=== PATIENT | male | born 1955 | race Caucasian/White ===

== ENCOUNTER 2021-08-12 18:14 | Emergency (ER) | payer OTHER, SELFPAY ==
[2021-08-12] VITALS (21 sets, daily range): BP systolic 130–165; BP diastolic 83–95; PULSE 59–108; RESP 12–23; TEMP 36.6; O2SAT 94–99
--- NOTE | ~2021-08-12 | XR_ITS ---
XR chest 1V portable DATE: 08/12/2021 18:36 INDICATION: Irregular heart rate, lightheadedness. Hypertension. TECHNIQUE: Portable AP chest on 08/12/2021 1833 hours COMPARISON: 04/09/2010 PA and lateral chest FINDINGS: Normal heart size. No hilar or mediastinal enlargement. No pulmonary infiltrate or consol idation, pulmonary vascular congestion or pleural effusion or pneumothorax. Osteopenia. IMPRESSION: No active cardiopulmonary disease Osteopenia Reviewed, dictated and finalized at location A.
--- NOTE | 2021-08-12 18:15 | ECG_ITS ---
Measurements Intervals [place] Rate: 132 P: MT: 0 QRS: 14 QRSD: 230 T: 202 QT: 319 QTc: 473 Interpretive Statements SINUS RHYTHM WITH LEFT AXIS DEVIATION CONVERTING INTO WIDE COMPLEX TACHYCARDIA CONSISTENT WITHVENTRICULAR TACHYCARDIA. ABNORMAL ECG Electronically Signed On 08-13-2021 12:32:36 CDT by Augustus Hoff M.D.
[2021-08-12] MEDS: AMIODARONE 150 MG/D5W 100 ML 150 MG/100 ML BAG 600 MG IV CONT (18:29)
[2021-08-12] MEDS: ASPIRIN 81 MG CHEWABLE TABLET 324 MG PO (18:36)
[2021-08-12] MEDS: AMIODARONE 360 MG/D5W 200 ML 360 MG/200 ML BAG 33.33 MG IV CONT (18:39)
[2021-08-12 18:42] LABS: Basophils Percent Auto 0.3 % (0.2-1.2); Eosinophils Absolute Auto 0.2 K/mm3 (0-0.3); Eosinophils Percent Auto 1.6 % (0-4.4); Hematocrit 44.9 % (42.0-52.0); Hemoglobin 15.3 g/dL (14.0-18.0); Immature Granulocyte Absolute 0.04 K/mm3 (0.00-0.031); Immature Granulocyte Percent A 0.3 % (0-0.5); Lymphocytes Absolute Auto 3.23 K/mm3 (0.9-3.2); Lymphocytes Percent Auto 23.8 % (18.3-44.2); Mean Corpuscular HGB Conc 34.1 g/dl (32-36); Mean Corpuscular Hemoglobin 30.4 pg (26-34); Mean Corpuscular Volume 89.3 fl (80-100); Mean Platelet Volume 11.1 fl (7.4-10.4); Monocytes Absolute Auto 1.2 K/mm3 (0.1-0.6); Monocytes Percent Auto 8.5 % (2.6-8.5); Neutrophils Absolute Auto 8.9 K/mm3 (1.3-6.7); Neutrophils Percent Auto 65.5 % (45.5-73.1); Platelet Count Result 236 k/mm3 (150-375); Red Blood Count 5.03 M/mm3 (4.6-6.20); Red Cell Distribution Width 13.1 % (11.5-14.5); White Blood Count 13.6 K/mm3 (4.5-10.0)
--- NOTE | 2021-08-12 18:46 | ED.ARRPALP ---
HPI - Arrhythmia/Palpitations General Chief Complaint: Arrhythmia/Palpitations Stated Complaint: IRREG HR Time Seen by Provider: 08/12/21 18:17 Source: patient Mode of arrival: ambulatory Limitations: no limitations History of Present Illness HPI narrative: Patient is a 66-year-old male, with Hx of HTN, who presents the ED with report of palpitations. Pt reports he has had intermittent episodes of dizziness, lightheadedness, palpitations, and chest pain over the past few months. He states this episode will last a few seconds at a time before resolving. Tonight, these episodes became more frequent and prolonged approx 1 hour ago, prompting him to come to the ED. Patient with runs of sustained VTACH upon arrival. Patient has a long history of PVCs and palpitations, per his old records. He states he has worn several Holter monitors in the past and at one point a pacemaker was discussed. Patient had a cardiac evaluation and stress test 2 years ago at [facility], which he reports was normal. 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 Patient denies any recent fever, cough, back pain, syncope. He c/o mild nausea with the episodes. Patient is a full code. Related Data Home Medications Medication Instructions Recorded Confirmed atorvastatin 5 mg PO DAILY 08/12/21 metoprolol tartrate 25 mg PO DAILY 08/12/21 telmisartan 80 mg PO DAILY 08/12/21 Allergies Allergy/AdvReac Type Severity Reaction Status Date / Time No Known Allergies Allergy Mild Unverified 08/12/21 20:18 Review of Systems Review of Systems: CONSTITUTIONAL: Denies fever, chills. CARDIOVASCULAR: Reports palpitations and chest pain/tightness. Denies BLE edema. RESPIRATORY: Denies cough or dyspnea. GASTROINTESTINAL: Reports mild nausea. Denies abdominal pain, vomiting, or diarrhea. MUSCULOSKELETAL: Denies back pain, joint pain, or myalgia. NEUROLOGIC: Reports dizziness, lightheadedness. Denies syncope, headache, numbness, or weakness. All systems reviewed & are unremarkable except as noted in HPI and below PMFSH Past Medical History Medical History (Updated 08/12/21 @ 21:30 by Janeth Trujillo PA-C) Chou esophagus Hypertension PVC (premature ventricular contraction) Surgical History Surgical History (Updated 08/12/21 @ 21:16 by Janeth Trujillo PA-C) No pertinent past surgical history Social History Social History (Updated 08/12/21 @ 21:16 by Janeth Trujillo PA-C) Smoking status: Former smoker Exam Narrative: GENERAL: Well appearing, well-nourished, non-toxic, in no acute distress. HEAD: Normocephalic, atraumatic. NECK: Supple. No adenopathy, no masses. RESPIRATORY: Airway patent, respirations nonlabored. Clear to auscultation bilaterally, no rales, rhonchi, wheezing. CARDIOVASCULAR: Regular rate and rhythm with intermittent irregular rhythm. No murmurs, rubs, or gallops. Peripheral pulses 2+ and equal bilaterally. ABDOMINAL: Soft, nontender, nondistended, no hepatosplenomegaly. Normoactive BS. MUSCULOSKELETAL: Moves all extremities. Strength/ROM intact without gross deformities or TTP. No edema. No calf tenderness. SKIN: Warm, dry, normal color. No rashes. NEURO: A&O X3. Speech clear. Cranial nerves II-XII grossly intact. Steady gait. No ataxic movements. PSYCHIATRIC: Appropriate mood and affect. Normal interaction. Course Consultations Consultation #1: Discussed case with Dr. Hoff. Agrees with admission, but suggested calling [facility] or [facility] first to see if there are beds available where patient could receive electrophysiology consultation and evaluation. Date: 08/12/21 Time: 19:58 Consultation #2: Discussed with Dr. Alfaro, Hospitalist @ [facility] patient presentation and workup. Agrees with transfer and admission at this time. Date: 08/12/21 Vital Signs Vital signs: Vital Signs Temperature 98 F 08/12/21 18:17 Pulse Rate 108 H 08/12/21 18:17 Respiratory Rate 20 08/12/21 18:17 Blood Pressure 165/94 H 08/12
[2021-08-12 19:17] LABS: INR 1.1; Prothrombin Time 14.1 Seconds (11.1-14.7)
[2021-08-12 19:18] LABS: Alanine Aminotransferase 23 U/L (4-50); Albumin Level 4.4 g/dL (3.5-5.1); Alkaline Phosphatase 69 U/L (38-126); Anion Gap 12 mmol/L (8-16); Aspartate Amino Transferase 29 U/L (17-59); Bilirubin,Total 0.7 mg/dL (0.2-1.3); Blood Urea Nitrogen 20 mg/dL (9-20); Calcium 8.7 mg/dL (8.4-10.2); Carbon Dioxide 22 mmol/L (22-30); Chloride 105 mmol/L (98-107); Estimated CRCL calculation 62 ml/min; Estimated Glomerular Filt Rate > 60; Glucose 112 mg/dL (65-110); Lipase 122 U/L (23-300); Partial Thromboplastin Time 29.6 SECONDS (22.3-36.8); Potassium 3.3 mmol/L (3.4-5.0); Sodium 139 mmol/L (137-145)
[2021-08-12 19:29] LABS: Troponin I < 0.012 ng/mL (0.000-0.034)
[2021-08-12 21:38] LABS: SARS-CoV-2 RNA PCR Negative
[2021-08-12 22:12] LABS: Troponin I < 0.012 ng/mL (0.000-0.034)
--- NOTE | 2021-08-12 23:45 | PC.NURSE ---
Updated [facility] ETA 0130.
[2021-08-13] VITALS (7 sets, daily range): BP systolic 128–137; BP diastolic 59–93; PULSE 59–74; RESP 17–19; O2SAT 95–97
[2021-08-13] MEDS: AMIODARONE 360 MG/D5W 200 ML 360 MG/200 ML BAG 16.67 MG IV CONT (00:45)
[2021-08-13 01:06] LABS: Troponin I 0.022 ng/mL (0.000-0.034)
--- NOTE | 2021-08-13 02:49 | PC.NURSE ---
Per [facility] - unit sec, new EMS arrival time aprox 1005, pt made aware. Denies wanting blanket, lights dimmed, or needing anything at this time. Pt on tele monitor w/ VSS.
== END 2021-08-13 04:48 | disposition short-term general hospital (02) ==
PROVIDERS: Emergency Provider Emergency Medicine; PCP Internal Medicine
DX: I47.2 Ventricular tachycardia (principal); Z20.822 Contact with and (suspected) exposure to COVID-19; K22.70 Barrett's esophagus without dysplasia; I10 Essential (primary) hypertension; Z87.891 Personal history of nicotine dependence; M85.88 Other specified disorders of bone density and structure, other site
CPT/HCPCS: 36415; 71045; 80053; 83690; 83735; 84484; 85025; 85610; 85730; 93005; 96365; 96366; 99285; A9270; C9803; J0282; U0003; U0005

== ENCOUNTER 2025-04-18 03:19 | Emergency (ER) | payer MEDICARE, SELFPAY ==
--- NOTE | ~2025-04-18 | XR_ITS ---
Examination: XR chest 1V portable Clinical History: palpitations, dyspnea Comparison: 08/12/2021 Technique: Portable AP Findings: Heart size upper limit of normal. Low lung volumes with crowding of bronchovascular markings. Mild bibasilar atelectasis. No acute bony abnormality. IMPRESSION: 1. No acute cardiopulmonary findings given portable technique. Consider PA and lateral films with deep inspiration. Reviewed, dictated and finalized at location R. OAT MATE
--- OUTSIDE RECORDS SUMMARY | 2025-04-18 03:22 | XMS_ITS | Clinical Summary ---
Author Organization [facility] Address [address] [place] [address] Care Team Providers Care Scrap Sawyer Name Role Phone Zahida Griffin NP Unavailable [phone] Edy Godinez MD Primary Care Provider [phone] Marie CHOI MD, Curtis Merle Unavailable [phone] Allergies No known active allergies Medications atorvastatin (LIPITOR) 10 mg tabletIndications: Mixed hyperlipidemia Take 0.5 tablets (5 mg total) by mouth nightly 45 tablet 2 04/15/20 24 Active calcium carbonate (TUMS ORAL) Take by mouth 4 (four) times a day as needed (reflux) Active metoprolol XL (TOPROL-XL) 50 mg extended release tabletIndications: Benign hypertension Take 1 tablet (50 mg total) by mouth daily 90 tablet 3 03/22/20 25 026 Active losartan (COZAAR) 25 mg tabletIndications: Benign hypertension Take 1 tablet (25 mg total) by mouth daily 30 tablet 11 03/22/20 25 026 Active metoprolol tartrate (LOPRESSOR) 50 mg immediate release tablet Take 1 tablet by mouth twice daily 180 tablet 02/06/20 25 025 Discontinued Active Problems Problem Noted Date Diagnosed Date PVC (premature ventricular contraction) 03/22/20 25 Left ventricular diastolic d ysfunction with preserved systolic function 04/15/2024 Assessment & Plan (04/15/2024 10:40 PM COOK'S ASSISTANT): - Muna scan (09/08/21): mildly reduced LVEF 47%; negative myocardial perfusion imaging; mild to moderate LV dysfunction - asymptomatic, continues on metropolol - follow-up with cardiology Class 1 obesity with serious comorbidity and body mass index (BMI) of 30.0 to 30.9 in adult 04/15/2024 Assessment & Plan (10/13/2024 9:03 AM CDT): BMI Follow-up includes: nutrition counseling, exercise counseling, and education provided. Assessment & Plan (04/15/2024 10:46 PM COOK'S ASSISTANT): - heart healthy, low-fat, high-fiber diet - aim for at least 30 min aerobic activity daily Conductive hearing loss of r ight ear with unrestricted hearing of left ear 08/05/2023 2008 Encounter for annual wellnes s visit (AWV) in Medicare patient 02/02/2022 Assessment & Plan (02/04/2023 8:44 AM CDT): A(n) yearly Medicare Annual Wellness Visit has been performed today. Meir Calles is up to date on screening tests. He is in need of None- no screening indicated at this time. He is not up to date on needed preventative vaccinations; He is in need of Tdap/Td, Influenza, and Covid-19 (booster). We discussed healthy lifestyle habits, educational material has been given. Medications reviewed, changes documented as per the medical record and discussed with patient along with risks vs benefits. Return in 6 months Assessment & Plan (02/02/2022 5:57 PM CDT): A(n) initial Medicare Annual Wellness Visit has been performed today. Meir Calles is not up to date on screening tests. He is in need of Colon cancer screening. He is not up to date on needed preventative vaccinations; He is in need of Influenza and Covid-19 (booster). Labs as ordered Continuing metoprolol and atorvastatin at current doses Nonischemic cardiomyopathy 09/25/2021 Assessment & Plan (03/30/2025 7:56 AM COOK'S ASSISTANT): Chronic, stable. Mild LV dysfunction by last assessment. No significant ongoing HF symptoms. --Continue metoprolol and losartan Assessment & Plan (03/27/2023 8:37 AM CDT): Mild, with generally preserved LV ejection fraction. No heart failure symptoms. --Continue metoprolol Assessment & Plan (09/25/2021 11:14 AM CDT): Very mild/borderline LV dysfunction with nonspecific pattern of LGE on MRI. No perfusion abnormality to suggest infarct/ischemia. --No current indication for ICD --Continue metoprolol Liver cyst 09/20/2021 Assessment & Plan (09/20/2021 8:58 AM CDT): Found incidental on colin and apearance of benign suggest sono to [facility] and confirm stable bversus gi eval . Has gi for esophagus and Consider using them Colon cancer screening 09/20/2021 Assessment & Plan (09/20/2021 9:06 AM CDT): Referral to gi for 5 yr colon repeat Ventricular tachycardia, non-sustained Assessment & Plan (03/30/2025 7:55 AM COOK'S ASSISTANT): Chronic, stable. Low clinical burden. Well suppressed on metoprolol, which is well tolerated. --Continue metoprolol XL 50 mg daily Assessment & Plan (04/01/2024 8:35 AM COOK'S ASSISTANT): Chronic, stable condition. Well suppressed on metoprolol. --Continue metoprolol 50 mg b.i.d. Assessment & Plan (03/27/2023 8:37 AM CDT): Stable, very well controlled on metoprolol. No recurrence of symptoms.' --Continue metoprolol 50 mg BID Assessment & Plan (03/26/2022 9:14 AM CDT): Stable/improved. No PVCs on ECG today. Low burden by last monitor. Continue current strategy. If PVCs/VT worsen, PVC ablation or AAD therapy could be considered. --Continue metoprolol 50 mg BID --F/u 1 year or sooner if needed. Assessment & Plan (09/25/2021 11:13 AM CDT): Episodes of nonsustained VT and frequent PVCs, associated with symptoms. Recent ambulatory monitor shows improvement in arrhythmia burden on metoprolol, with a low PVC burden (2%) and no sustained episodes of VT. VT occurs in the context of what appears to be a very mild nonischemic cardiomyopathy with borderline reduced LV systolic function and some nonspecific fibrosis by LGE/cMRI. No evidence of ischemia/infarct by MRI or SPECT imaging. Given his improvement in symptoms and reduction in arrhythmia burden, favor conservative therapy with metoprolol for now. If symptoms worsen or if any red flags develop, would consider EPS, VT ablation. No current indication for ICD, although that could change if pt develops sustained arrhythmia. --Continue metoprolol 50 mg PO BID. --Report worsening symptoms. 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 PE (physical exam), annual 12/17/2018 Assessment & Plan (09/20/2021 9:03 AM CDT): Well exam low fall risk deproiens screen neg and cog screen nl axel paige md E/P card next week has seeen kin in the future and due for colon in October. referal to gi for follow up colon . Had covid shots not take flu shots had shingles shot sereis and tetnus good for anouther yr Assessment & Plan (06/22/2020 9:02 AM COOK'S ASSISTANT): psa dropped to loewr 1.2 and v natalee nl . Check in a yr, not taking flu consider the cocvid. Up to date on tetnus. Referral for egd. Colon oup ot date. shinlges had series. Assessment & Plan (12/21/2019 8:31 AM CDT): Check on return Assessment & Plan (12/17/2018 9:20 AM CDT): Check on return yr'ly Grade III hemorrhoids 01/24/2018 Assessment & Plan (01/24/2018 8:28 AM CDT): Chronic issue and declines surg ref erral but consider. Nocturia 04/25/2017 Assessment & Plan (01/24/2018 8:22 AM CDT): Check psa yr'ly and on return Assessment & Plan (04/25/2017 11:00 AM COOK'S ASSISTANT): Check psa yr'ly IGT (impaired glucose tolerance) 01/25/2017 Assessment & Plan (09/20/2021 8:54 AM CDT): a1c down to 5.4 dn in past 5.7 so watch diet Assessment & Plan (05/25/2021 8:30 AM COOK'S ASSISTANT): Check on return a1c Assessment & Plan (12/20/2020 8:21 AM CDT): Check a1 On reutrn Assessment & Plan (06/22/2020 8:53 AM COOK'S ASSISTANT): a1c dropoped over a yr on yr to nl at 5.6 Assessment & Plan (12/21/2019 8:31 AM CDT): a1c at 5.6 and droped trace recheck and watach diet Assessment & Plan (12/17/2018 9:24 AM CDT): a1c at 5.7 and 5.6 nl. Assessment & Plan (01/24/2018 8:21 AM CDT): a1c at 5.5 and 5.6 and less nl. No change and watch diet Assessment & Plan (04/25/2017 10:54 AM COOK'S ASSISTANT): Check obn return Assessment & Plan (01/25/2017 8:20 AM CDT): a1c at 5.5 and 5.6 andless nl Hyperlipidemia 05/02/2015 Overview (08/31/2016): HYPERLIPIDEMIA NEC/NOS Assessment & Plan (04/15/2024 10:46 PM COOK'S ASSISTANT): - chronic, LDL 72- close to goal of < 70 - HDL 33, triglycerides mildly elevated- may consider adding omega-3 supplementation, has been increasing PE - continue atorvastatin 10 mg daily Assessment & Plan (08/05/2022 10:56 AM CDT): Continuing atorvastatin LDL 66 mg/dl, well controlled HDL low, discussed need for regular activity LFT's wnl Assessment & Plan (09/20/2021 8:54 AM CDT): ldl at 50 and only needs 5mg And work well and keep hereYour cholesterol in the form of ldl (bad) cholesterol,hdl(good) cholesterol and triglycerides are monitored. The triglycerides respond to reduction/controll of your simple carbs/sugars In such items as sugared soda/sweet tea along with fruit juices(containing natural sugar) even if no added sugar is added. LDL cholesterol is reduced with reducing daily intake of fats and fernando. saturated fats. The monosaturated fats like olive oil are not harmful except in the calories they contained. Whole milk cheese needs to be remembered along with whole milk products And limited. Assessment & Plan (05/25/2021 8:30 AM COOK'S ASSISTANT): ldl 69 and want here r betterYour cholesterol in the form of ldl (bad) cholesterol,hdl(good) cholesterol and triglycerides are monitored. The triglycerides respond to reduction/controll of your simple carbs/sugars In such items as sugared soda/sweet tea along with fruit juices(containing natural sugar) even if no added sugar is added. LDL cholesterol is reduced with reducing daily intake of fats and fernando. saturated fats. The monosaturated fats like olive oil are not harmful except in the calories they contained. Whole milk cheese needs to be remembered along with whole milk products And limited. Assessment & Plan (12/20/2020 8:20 AM CDT): ldl dropped to 50 and on 10 And takes 1/2 so keep hereYour cholesterol in the form of ldl (bad) cholesterol,hdl(good) cholesterol and triglycerides are monitored. The triglycerides respond to reduction/controll of your simple carbs/sugars In such items as sugared soda/sweet tea along with fruit juices(containing natural sugar) even if no added sugar is added. LDL cholesterol is reduced with reducing daily intake of fats and fernando. saturated fats. The monosaturated fats like olive oil are not harmful except in the calories they contained. Whole milk cheese needs to be remembered along with whole milk products And limited. Assessment & Plan (06/22/2020 8:55 AM COOK'S ASSISTANT): ldl at 99 and hdl 32. Given ascvd risk 11.8% will stt atorvsitn 10 and take 1/2 A day with suggest to start at crushing the 1/2 pill and divide out over a week and see effect. If gets tired of doing can go to a 1/2 a day but no higherYour cholesterol in the form of ldl (bad) cholesterol,hdl(good) cholesterol and triglycerides are monitored. The triglycerides respond to reduction/controll of your simple carbs/sugars In such items as sugared soda/sweet tea along with fruit juices(containing natural sugar) even if no added sugar is added. LDL cholesterol is reduced with reducing daily intake of fats and fernando. saturated fats. The monosaturated fats like olive oil are not harmful except in the calories they contained. Whole milk cheese needs to be remembered along with whole milk products And limited. Assessment & Plan (12/21/2019 8:30 AM CDT): Lipids missed and ordered for returnYour cholesterol in the form of ldl (bad) cholesterol,hdl(good) cholesterol and triglycerides are monitored. The triglycerides respond to reduction/controll of your simple carbs/sugars In such items as sugared soda/sweet tea along with fruit juices(containing natural sugar) even if no added sugar is added. LDL cholesterol is reduced with reducing daily intake of fats and fernando. saturated fats. The monosaturated fats like olive oil are not harmful except in the calories they contained. Whole milk cheese needs to be remembered along with whole milk products And limited. Assessment & Plan (12/17/2018 9:24 AM CDT): ldl at 55 and great check full patern on returnYour cholesterol in the form of ldl (bad) cholesterol,hdl(good) cholesterol and triglycerides are monitored. The triglycerides respond to reduction/controll of your simple carbs/sugars In such items as sugared soda/sweet tea along with fruit juices(containing natural sugar) even if no added sugar is added. LDL cholesterol is reduced with reducing daily intake of fats and fernando. saturated fats. The monosaturated fats like olive oil are not harmful except in the calories they contained. Whole milk cheese needs to be remembered along with whole milk products And limited. Assessment & Plan (01/24/2018 8:21 AM CDT): hdl low at 30 ,ldl atg 60 great and no changes in medYour cholesterol in the form of ldl (bad) cholesterol,hdl(good) cholesterol and triglycerides are monitored. The triglycerides respond to reduction/controll of your simple carbs/sugars In such items as sugared soda/sweet tea along with fruit juices(containing natural sugar) even if no added sugar is added. LDL cholesterol is reduced with reducing daily intake of fats and fernando. saturated fats. The monosaturated fats like olive oil are not harmful except in the calories they contained. Whole milk cheese needs to be remembered along with whole milk products And limited. Assessment & Plan (04/25/2017 10:55 AM COOK'S ASSISTANT): ldl dropped To 57 with only 10 mg of atorvastin. Stay here as reverse many's arterial diseaeYour cholesterol in the form of ldl (bad) cholesterol,hdl(good) cholesterol and triglycerides are monitored. The triglycerides respond to reduction/controll of your simple carbs/sugars In such items as sugared soda/sweet tea along with fruit juices(containing natural sugar) even if no added sugar is added. LDL cholesterol is reduced with reducing daily intake of fats and fernando. saturated fats. The monosaturated fats like olive oil are not harmful except in the calories they contained. Whole milk cheese needs to be remembered along with whole milk products And limited. Assessment & Plan (01/25/2017 8:20 AM CDT): hdl going down to 30 and ldl at 101 and target less then 100, with systolic function issue there is a rec to work to keep ldl ideal and a Trace dose of a statin to consider.Your cholesterol in the form of ldl (bad) cholesterol,hdl(good) cholesterol and triglycerides are monitored. The triglycerides respond to reduction/controll of your simple carbs/sugars In such items as sugared soda/sweet tea along with fruit juices(containing natural sugar) even if no added sugar is added. LDL cholesterol is reduced with reducing daily intake of fats and fernando. saturated fats. The monosaturated fats like olive oil are not harmful except in the calories they contained. Whole milk cheese needs to be remembered along with whole milk products And limited. Chou's esophagus 10/10/2013 Overview (08/29/2016): Chou esophagus Assessment & Plan (04/15/2024 10:44 PM COOK'S ASSISTANT): - based on EGD esophageal bx (03/22/22) - no acute concerns, denies dysphagia - not currently on PPI, recommend routine follow-up with GI Assessment & Plan (06/22/2020 8:57 AM COOK'S ASSISTANT): Should see gi to be re eval'd ? Per there directios. As last one age 62. Last 11/10 and rec's of 3 yr repeat. Will refer Assessment & Plan (12/17/2018 9:23 AM CDT): Needs egd next October. Discussed meds and declines Palpitations 10/10/2013 Overview (08/29/2016): Palpitation Assessment & Plan (06/22/2020 8:53 AM COOK'S ASSISTANT): Gone with meds and lower caffeine Panic 10/10/2013 Overview (08/29/2016): Panic Intention tremor 10/10/2013 Overview (08/29/2016): Intention tremor Benign hypertension 10/10/2013 Overview (08/31/2016): BENIGN HYPERTENSION Assessment & Plan (04/15/2024 10:24 PM COOK'S ASSISTANT): - chronic, at goal of < 140/90 - continue metoprolol 50 mg BID - eGFR 68 Assessment & Plan (08/05/2022 10:55 AM CDT): Labs look well BP is controlled Continuing metoprolol Discussed AAA screen Assessment & Plan (09/20/2021 8:56 AM CDT): Hypertension, Medical treament revolves around weight control, salt management, and meds when necessary. long as weight loss is necessary and you are able to drop weight we can cont to monitor the blood pressure and not add meds. Once the weight is not changing then it becomes nesessary to add meds to be able to reach the goal bp.bp good on meds and leave alone. contorllledon meds Assessment & Plan (05/25/2021 8:31 AM COOK'S ASSISTANT): bp better and keep meds hereHypertension, Medical treament revolves around weight control, salt management, and meds when necessary. long as weight loss is necessary and you are able to drop weight we can cont to monitor the blood pressure and not add meds. Once the weight is not changing then it becomes nesessary to add meds to be able to reach the goal bp. Assessment & Plan (02/21/2021 8:03 AM CDT): Recommend DASH diet, heart healthy lifestyle, exercise. Discussed the risks of hypertension. Assessment & Plan (12/20/2020 8:16 AM CDT): The bp on high dise and will go to 80 mg on micardis and recheck and add hctz 12.5 in future if not ok. Hypertension, Medical treament revolves around weight control, salt management, and meds when necessary. long as weight loss is necessary and you are able to drop weight we can cont to monitor the blood pressure and not add meds. Once the weight is not changing then it becomes nesessary to add meds to be able to reach the goal bp. Assessment & Plan (06/22/2020 8:55 AM COOK'S ASSISTANT): bp contorlleda nd stay on meds as onHypertension, Medical treament revolves around weight control, salt management, and meds when necessary. long as weight loss is necessary and you are able to drop weight we can cont to monitor the blood pressure and not add meds. Once the weight is not changing then it becomes nesessary to add meds to be able to reach the goal bp. Assessment & Plan (12/21/2019 8:30 AM CDT): Reasonable controlled and cont meds as on Hypertension, Medical treament revolves around weight control, salt management, and meds when necessary. long as weight loss is necessary and you are able to drop weight we can cont to monitor the blood pressure and not add meds. Once the weight is not changing then it becomes nesessary to add meds to be able to reach the goal bp. Assessment & Plan (06/19/2019 8:02 AM COOK'S ASSISTANT): Recommend DASH diet, heart-healthy lifestyle, exercise. Discussed the risks of hypertension. Assessment & Plan (12/17/2018 9:23 AM CDT): bp acceeptable and no changes Assessment & Plan (09/15/2018 12:53 PM CDT): Recommend DASH diet, heart-healthy lifestyle, exercise. Discussed the risks of hypertension. Assessment & Plan (01/24/2018 8:20 AM CDT): The bp high and restart benicar and start at 1/4 pill a day and after 2 wks go to 1/2 if need Targeting less then 130 all time. Consider supper time if f eel lightheaed. Hypertension, Medical treament revolves around weight control, salt management, and meds when necessary. long as weight loss is necessary and you are able to drop weight we can cont to monitor the blood pressure and not add meds. Once the weight is not changing then it becomes nesessary to add meds to be able to reach the goal bp. Assessment & Plan (08/21/2017 9:59 PM CDT): Recommend DASH diet, heart-healthy lifestyle, exercise. Discussed the risks of hypertension. Assessment & Plan (04/25/2017 10:55 AM COOK'S ASSISTANT): bp good and no chagesHypertension, Medical treament revolves around weight control, salt management, and meds when necessary. long as weight loss is necessary and you are able to drop weight we can cont to monitor the blood pressure and not add meds. Once the weight is not changing then it becomes nesessary to add meds to be able to reach the goal bp.. Assessment & Plan (01/25/2017 8:18 AM CDT): bp high nl and monitor on occasionHypertension, Medical treament revolves around weight control, salt management, and meds when necessary. long as weight loss is necessary and you are able to drop weight we can cont to monitor the blood pressure and not add meds. Once the weight is not changing then it becomes nesessary to add meds to be able to reach the goal bp. Stricture of esophagus 10/10/2013 Overview (08/31/2016): Esophageal stricture Assessment & Plan (09/20/2021 8:53 AM CDT): Doing well Assessment & Plan (06/22/2020 8:52 AM COOK'S ASSISTANT): No complaints and not seeing gi for Systolic dysfunction 10/10/2013 Overview (08/31/2016): Systolic dysfunction Assessment & Plan (09/20/2021 8:53 AM CDT): Mild eje low or borderline . Seeing card as arb an issue Assessment & Plan (12/20/2020 8:20 AM CDT): eje fr 45 and wt off and bp tightening in order and recheck in a yr Assessment & Plan (06/22/2020 8:51 AM COOK'S ASSISTANT): Last 55 % eje fr and will ask to repeat the Wk before return Assessment & Plan (01/25/2017 8:19 AM CDT): Last echo at 57 and improved. Suggest to start low dose coreg and work up over time and recheck in a yr Obstructive sleep apnea syndrome 04/23/2011 Overview (08/31/2016): LIBERTAD (obstructive sleep apnea) Assessment & Plan (09/20/2021 8:53 AM CDT): Not treated and cannot tolerate Assessment & Plan (06/22/2020 8:53 AM COOK'S ASSISTANT): Does not treat Assessment & Plan (12/21/2019 8:31 AM CDT): Does not use Assessment & Plan (12/17/2018 9:26 AM CDT): doesnot use cpap and sugtest seeing sleep md at some point Resolved Problems Problem Noted Date Diagnosed Date Resolved Date Right wrist pain 01/24/2018 06/22/2020 Assessment & Plan (01/24/2018 8:27 AM CDT): Trial glusamine and if not helpful after a m onth then ortho referral Acute allergic otitis media of both ears 04/25/2017 01/24/2018 Assessment & Plan (04/25/2017 10:59 AM COOK'S ASSISTANT): Start Zyrtec 10 mg daily. Add singulair to try to work lazaro and see if can't reverse. . Once thru a series of freezes can sonsider backing off and restart the 1st week of dec. Restart flonase as well for now uontil better and then can try to stop the flonase, can use with atorovent nasal. Abnormal glucose tolerance test (GTT) 10/10/2013 01/25/2017 Overview (08/31/2016): IMPAIRED ORAL GLUCSE HERIBERTO Sleep apnea 10/10/2013 01/25/2017 Overview (08/31/2016): Sleep apnea Hypersomnia with sleep apnea 07/23/2011 01/25/2017 Overview (08/31/2016): Hypersomnia with sleep apnea Class 1 obesity with body ma ss index (BMI) of 32.0 to 32.9 in adult 04/23/2011 02/04/2023 Overview (08/29/2016): Obesity Assessment & Plan (08/05/2022 10:56 AM CDT): BMI Follow-up includes: nutrition counseling, exercise counseling and education provided. Assessment & Plan (09/20/2021 8:55 AM CDT): Work to keep stable to lose Assessment & Plan (05/25/2021 8:31 AM COOK'S ASSISTANT): Wt stable and Keep hre or better Assessment & Plan (12/20/2020 8:22 AM CDT): Work to drop wt Assessment & Plan (06/22/2020 8:59 AM COOK'S ASSISTANT): Work to dorp Insomnia 04/23/2011 01/25/2017 Overview (08/29/2016): Insomnia Encounters Date Type Department Care Team Description 04/13/2025 Results Follow-Up [facility] at [address] [phone] Edy Godinez MD CBC with auto differential, Comprehensive metabolic panel, Lipid panel, Additional followed-up results: 6 03/30/2025 8:00 AM COOK'S ASSISTANT [facility] [address] [id number] Madhu Salazar III, MD Ventricular tachycardia, non-sustained (HCC) (Primary Dx); Nonischemic cardiomyopathy (HCC); Cardiac arrhythmia, unspecified cardiac arrhythmia type 03/22/2025 10:45 AM CDT Office Visit [facility] at [address] [phone] Edy Godinez MD Benign hypertension (Primary Dx) 03/19/2025 Telephone [facility] at [address] [phone] Edy Godinez MD Symptom Based Call from Last 3 Months Immunizations Immunization Administration Dates Next Due DTaP 02/04/2024 Influenza, Unspecified 03/22/2025(Deferr ed: Patient Refused),04/15/2024(Deferred: Patient Refused),12/27/2023(Deferred: Patient Refused),08/05/2023(Deferred: Patient Refused),05/27/2023(Deferred: Patient Refused),05/28/2022(Deferred: Patient Refused),05/28/2022(Deferred: Patient Refused),03/02/2022(Deferred: Patient Refused),02/25/2022(Deferred: Patient Refused),01/31/2022(Deferred: Patient Refused),05/25/2021(Deferred: Patient Refused),03/02/2021(Deferred: Patient Refused),02/21/2021(Deferred: Patient Refused),06/22/2020(Deferred: Patient Refused),02/25/2020(Deferred: Patient Refused),02/25/2020(Deferred: Patient Refused),12/21/2019(Deferred: Patient Refused),02/24/2019(Deferred: Patient Refused),06/18/2018(Deferred: Patient Refused) Pfizer SARS-CoV-2 Monovalent Vaccination (12+ Yrs) PURPLE 10/27/2020,10/01/2020 Pneumococcal Conjugate PCV 13 08/01/2022 Pneumococcal Conjugate Pcv20 08/05/2023 Tdap 02/04/2024,07/28/2012,07/28/2012 ZOSTER Recombinant 12/21/2019,08/25/2019 Surgical History Surgery Date Site/Laterality Comments OTHER SURGICAL HISTORY 05/27/2009 - 05/26/2010 chest pain er COLONOSCOPY 03/22/2022 5 years ago Medical History Medical History Date Comments Atrial tachycardia Atrial Tachyc ardia Hx Other Medical Panic Gastric ulcer stomach ulcer Hypertension Hypertension History of colonoscopy 11/13/2016 at [facility] [place] esophagus GERD (gastroesophageal reflux disease) Anxiety 1978 Conductive hearing loss of r ight ear with unrestricted hearing of left ear 08/05/2023 Family History Medical History Relation Name Comments COPD Father Boris Calles Heart failure Father Boris Calles Hypertension Father Boris Calles Hypertension ; /Hypertension; No Known Problems Maternal Grandfather Cancer Maternal Grandmother Cassandra Little ca n't recall primary Dementia Mother Melba Calles Dementia; Diabetes Mother Melba Calles Diabetes me llitus; Hypertension Mother Melba Calles Hypertensio n; /Hypertension; Memory loss Mother Melba Calles Other Mother Melba Coronamouna Tremors; No Known Problems Paternal Grandfather Leukemia Paternal Grandmother Leukemia Sister Relation Name Status Comments Father Boris Calles Maternal Grandfather Maternal Grandmother Cassandra Little Mother Melba Calles Paternal Grandfather Paternal Grandmother Sister Alive Social History Tobacco Use Types Packs/Day Years Used Date Smoking Tobacco: Former Cigarettes 0.8 4 1 975 - 1978 Smokeless Tobacco: Never Comments:Haven't smoked in o sixto 42 years. Alcohol Use Standard Drinks/Week Comments Yes 0 (1 standard drink = 0.6 oz pur e alcohol) rarely AUDIT-C Answer Date Recorded Q1: How often do you have a drink containing alc ohol? 2-3 times a week 10/13/2024 Q2: How many drinks containi ng alcohol do you have on a typical day when you are drinking? 1 or 2 10/13/2024 Q3: How often do you have si x or more drinks on one occasion? 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 Not on file Not on file Not on fi le Last Filed Vital Signs Vital Sign Reading Time Taken Comments Blood Pressure 152/78 03/30/2025 8:08 AM COOK'S ASSISTANT Pulse 63 03/30/2025 8:08 AM COOK'S ASSISTANT Temperature 36.1 C (96.9 F) 03/22/2025 10:58 AM CDT Respiratory Rate 18 03/22/2025 10:58 AM CDT Oxygen Saturation 98% 03/30/2025 8:08 AM COOK'S ASSISTANT Inhaled Oxygen Concentration - - Weight 94.3 kg (208 lb) 03/30/2025 8:08 AM COOK'S ASSISTANT Height 177.8 cm (5' 10) 03/30/2025 8:08 AM COOK'S ASSISTANT Body Mass Index 29.84 03/30/2025 8:08 AM COOK'S ASSISTANT Plan of Treatment Health Maintenance Due Date Last Done Comments Prostate Cancer Screening-PSA 01/19/2025 01/20/2024, 07/30/2023, 01/22/2023, Additional history exists Depression Screening 10/13/2025 10/13/2024, 04/15/2024, 08/05/2023, Additional history exists Fall Risk Assessment 10/13/2025 10/13/2024, 04/15/2024, 02/04/2023, Additional history exists Well Visit 65+ 10/13/2025 10/13/2024, 01/25, 01/31/2022, Additional history exists Influenza Vaccine (#1) 2025 Postp oned from 01/25/2025 (Patient declined, but will receive in the future) Covid-19 Vaccine ( season) 2026 05/31/2021, 10/27/2020, 10/01/2020 Postponed from 01/25/2025 (Patient declined, but will receive in the future) Colon Cancer Screening-Colonoscopy 03/22/2032 03/22/2022, 11/13/2016, 01/09/2012, Additional history exists DTaP/Tdap/Td Vaccine (5 - Td or Tdap) 02/03/2034 02/04/2024, 02/04/2024, 07/28/2012, Additional history exists Hepatitis C Screening Completed 08/13/2016 Zoster Vaccine Completed 12/21/2019, 08/25/2019 Colon Cancer Screening-CT Colonography Discontinued 03/22/2022, 11/13/2016, 01/09/2012, Additional history exists Colon Cancer Screening-DNA Stool Discontinued 03/22/2022, 11/13/2016, 01/09/2012, Additional history exists Colon Cancer Screening-FIT Discontinued 03/22, 11/13/2016, 01/09/2012, Additional history exists Colon Cancer Screening-Sigmoidoscopy Discontinued 03/22/2022, 11/13/2016, 01/09/2012, Additional history exists Abdominal Aortic Aneurysm (AAA) Screen Completed 01/10/2023 Pneumococcal vaccine 65+ Completed 08/05/2023, 12/2022 Hepatitis B Screening Completed 04/12/2025 Procedures Procedure Name Priority Date/Time Associated Diagnosis Comments HEMOGLOBIN A1C Routine 04/12/2025 7:52 AM COOK'S ASSISTANT IGT (impaired glucose tolerance) VITAMIN D 25 HYDROXY Routine 04/12/2025 7:52 AM COOK'S ASSISTANT Class 1 obesity due to excess calories with serious comorbidity and body mass index (BMI) of 30.0 to 30.9 in adult THYROID FUNCTION CASCADE Routine 04/12/2025 7:52 AM COOK'S ASSISTANT Benign hypertension LIPID PANEL Routine 04/12/2025 7:52 AM COOK'S ASSISTANT Mixed hyperlipidemia COMPREHENSIVE METABOLIC PANEL Routine 04/12/2025 7:52 AM COOK'S ASSISTANT Benign hypertension CBC WITH AUTO DIFFERENTIAL Routine 04/12/2025 7:52 AM COOK'S ASSISTANT Benign hypertension HEPATITIS B CORE ANTIBODY, TOTAL Routine 04/12/2025 7:52 AM COOK'S ASSISTANT Need for hepatitis B screening test HEPATITIS B SURFACE ANTIGEN Routine 04/12/2025 7:52 AM COOK'S ASSISTANT Need for hepatitis B screening test HEPATITIS B SURFACE ANTIBODY (IMMUNE STATUS) Routine 04/12/2025 7:52 AM COOK'S ASSISTANT Need for hepatitis B screening test ECG 12-LEAD Routine 03/30/2025 8:08 AM COOK'S ASSISTANT Cardiac arrhythmia, unspecified cardiac arrhythmia type PSA SCREEN Routine 01/20/2024 7:34 AM CDT Prostate cancer screening ABDOMINAL AORTIC ANEURYSM SCREENING Schedule Routine, Read Routine (OP Routine) 01/10/2023 12:00 PM CDT Screening for abdominal aortic aneurysm COLONOSCOPY 03/22/2022 8:08 AM CDT HEPATITIS C SCREENING Routine 08/13/2016 from Last 3 Months or Most Recently Relevant to Health Maintenance Results * Thyroid Function Moca (04/12/2025 7:52 AM COOK'S ASSISTANT) TSH 2.13 0.40 - 4.50 mIU/L [email or web address] Blood 04/12/2025 7:52 AM COOK'S ASSISTANT 04/12/2025 7:52 AM COOK'S ASSISTANT Narrative [facility] - 04/13/2025 3:43 AM COOK'S ASSISTANT FASTING:YES FASTING: YES us Edy Godinez MD LAB BLOOD ORDERABLES Final Result [facility] [address] [place] [address] * CBC with auto differential (04/12/2025 7:52 AM COOK'S ASSISTANT) WBC 9.1 3.8 - 10.8 Thousand/u L [facility] RBC, POC 5.34 4.20 - 5.80 Million/uL [facility] Hgb 15.8 13.2 - 17.1 g/dL [facility] Hct 48.9 38.5 - 50.0 % [email or web address] MCV 91.6 80.0 - 100.0 fL [email or web address] MCH 29.6 27.0 - 33.0 pg [email or web address] MCHC 32.3 32.0 - 36.0 g/dL [facility] Comment: For adults, a slight decrease in the calculated MCHC value (in the range of 30 to 32 g/dL) is most likely not clinically significant; however, it should be interpreted with caution in correlation with other red cell parameters and the patient's clinical condition. Rdw 12.7 11.0 - 15.0 % [email or web address] Platelets 246 140 - 400 Thousand/u L [email or web address] MPV 10.9 7.5 - 12.5 fL [facility] Neutrophils, abs 5,551 1,500 - 7,800 cells/uL [facility] Lymphocytes, abs 2,439 850 - 3,900 cells/uL [facility] Monocyte abs 764 200 - 950 cells/uL [facility] Eosinophils, abs 291 15 - 500 cells/uL [facility] Basophils, abs 55 0 - 200 cells/uL [facility] Neutrophils 61 % [email or web address] Lymphocyte pct 26.8 % [email or web address] Monocytes 8.4 % [email or web address] Eosinophils 3.2 % [email or web address] Basophils 0.6 % [facility] Blood 04/12/2025 7:52 AM COOK'S ASSISTANT 04/12/2025 7:52 AM COOK'S ASSISTANT Narrative [facility] - 04/13/2025 3:43 AM COOK'S ASSISTANT FASTING:YES FASTING: YES Edy Godinez MD LAB BLOOD ORDERABLES Final Result [email or web address] [address] [place] [address] * Hepatitis B core antibody, total Blood (04/12/2025 7:52 AM COOK'S ASSISTANT) Pathologist [facility] [place] Hep B core IgG/IgM NON-REACTI VE NON-REACTI VE [email or web address] Comment: For additional information, please refer to http://Rangespan.Archiver's/faq/JYU790 (This link is being provided for informational/ educational purposes only.) Blood 04/12/2025 7:52 AM COOK'S ASSISTANT 04/12/2025 7:52 AM COOK'S ASSISTANT Narrative [facility] - 04/13/2025 3:43 AM COOK'S ASSISTANT FASTING:YES FASTING: YES Edy Godinez MD LAB MICROBIOLOGY - GENERAL ORDERABLES Final Result [facility] [address] [place] [address] * Vitamin D 25 hydroxy (04/12/2025 7:52 AM COOK'S ASSISTANT) Pathologist [facility] [place] Vitamin D 25-OH 40 30 - 100 ng/mL [facility] Comment: Vitamin D Status 25-OH Vitamin D: Deficiency: <20 ng/mL Insufficiency: 20 - 29 ng/mL Optimal: > or = 30 ng/mL For 25-OH Vitamin D testing on patients on D2-supplementation and patients for whom quantitation of D2 and D3 fractions is required, the QuestAssureD(TM) 25-OH VIT D, (D2,D3), LC/MS/MS is recommended: order code [id number] (patients >2yrs). See Note 1 Note 1 For additional information, please refer to http://Rangespan.[employer]/faq/WMB442 (This link is being provided for informational/ educational purposes only.) Blood 04/12/2025 7:52 AM COOK'S ASSISTANT 04/12/2025 7:52 AM COOK'S ASSISTANT Narrative [facility] - 04/13/2025 3:43 AM COOK'S ASSISTANT FASTING:YES FASTING: YES Result [facility] us Edy Godinez MD LAB BLOOD ORDERABLES Final Result Performing Organization Address [facility] Co de Phone Number [facility] [address] [place] [address] * Hepatitis B surface antibody (immune status) Blood (04/12/2025 7:52 AM COOK'S ASSISTANT) HBsAb (immune status) NON-REACTI VE NON-REACTI VE [facility] Blood 04/12/2025 7:52 AM COOK'S ASSISTANT 04/12/2025 7:52 AM COOK'S ASSISTANT Narrative [facility] - 04/13/2025 3:43 AM COOK'S ASSISTANT FASTING:YES FASTING: YES Result [facility] Edy Godinez MD LAB MICROBIOLOGY - GENERAL ORDERABLES Final Result Performing Organization Address [facility] Co de Phone Number [facility] [address] [place] [address] * Hepatitis B Surface Antigen Blood (04/12/2025 7:52 AM COOK'S ASSISTANT) HepBsAg NON-REACTI VE NON-REACTI VE [facility] Comment: For additional information, please refer to http://education.Archiver's/faq/RVZ216 (This link is being provided for informational/ educational purposes only.) Blood 04/12/2025 7:52 AM COOK'S ASSISTANT 04/12/2025 7:52 AM COOK'S ASSISTANT Narrative [facility] - 04/13/2025 3:43 AM COOK'S ASSISTANT FASTING:YES FASTING: YES Result [facility] us Edy Godinez MD LAB MICROBIOLOGY - GENERAL ORDERABLES Final Result Performing Organization Address [facility] Co de Phone Number [facility] [address] [place] [address] * (ABNORMAL) Hemoglobin A1c (04/12/2025 7:52 AM COOK'S ASSISTANT) Pathologist [facility] [place] Hgb A1C 5.7(H) <5.7 % of total Hgb [facility] Comment: For someone without known diabetes, a hemoglobin A1c value between 5.7% and 6.4% is consistent with prediabetes and should be confirmed with a follow-up test. For someone with known diabetes, a value <7% indicates that their diabetes is well controlled. A1c targets should be individualized based on duration of diabetes, age, comorbid conditions, and other considerations. This assay result is consistent with an increased risk of diabetes. Currently, no consensus exists regarding use of hemoglobin A1c for diagnosis of diabetes for children. Blood 04/12/2025 7:52 AM COOK'S ASSISTANT 04/12/2025 7:52 AM COOK'S ASSISTANT Narrative [facility] - 04/13/2025 3:43 AM COOK'S ASSISTANT FASTING:YES FASTING: YES Edy Godinez MD LAB BLOOD ORDERABLES Final Result [facility] [address] [place] [address] * (ABNORMAL) Lipid panel (04/12/2025 7:52 AM COOK'S ASSISTANT) [facility] Cholesterol 122 <200 mg/dL [facility] HDL 33(L) > OR = 40 mg/dL [facility] Triglycerides 167(H) <150 mg/dL [facility] LDL 64 mg/dL (calc) [facility] Comment: Reference range: <100 Desirable range <100 mg/dL for primary prevention; <70 mg/dL for patients with CHD or diabetic patients with > or = 2 CHD risk factors. LDL-C is now calculated using the Oscar-Daria calculation, which is a validated novel method providing better accuracy than the Friedewald equation in the estimation of LDL-C. Oscar MELENDEZ et al. DEBORAH. 2013;310(19): 0803-0685 (http://education.[employer]/faq/LIF958) Chol/HDL ratio 3.7 <5.0 (calc) [facility] Non-HDL, (LDL+VLDL) 89 <130 mg/dL (calc) [facility] Comment: For patients with diabetes plus 1 major ASCVD risk factor, treating to a non-HDL-C goal of <100 mg/dL (LDL-C of <70 mg/dL) is considered a therapeutic option. Blood 04/12/2025 7:52 AM COOK'S ASSISTANT 04/12/2025 7:52 AM COOK'S ASSISTANT Narrative [facility] - 04/13/2025 3:43 AM COOK'S ASSISTANT FASTING:YES FASTING: YES us Edy Godinez MD LAB BLOOD ORDERABLES Final Result [facility] [address] [place] [address] * (ABNORMAL) Comprehensive metabolic panel (04/12/2025 7:52 AM COOK'S ASSISTANT) Glucose 112(H) 65 - 99 mg/dL [facility] Comment: Fasting reference interval For someone without known diabetes, a glucose value between 100 and 125 mg/dL is consistent with prediabetes and should be confirmed with a follow-up test. BUN 16 7 - 25 mg/dL [facility] Creatinine 1.15 0.70 - 1.35 mg/dL [facility] eGFR 69 > OR = 60 mL/min/1.7 3m2 [facility] BUN/creat ratio SEE NOTE: 6 - 22 (calc) [facility] Comment: Not Reported: BUN and Creatinine are within reference range. Sodium 139 135 - 146 mmol/L [facility] Potassium, pl 4.6 3.5 - 5.3 mmol/L [facility] Chloride 103 98 - 110 mmol/L [facility] CO2 30 20 - 32 mmol/L [facility] Calcium 9.7 8.6 - 10.3 mg/dL [facility] Protein, sr 7.3 6.1 - 8.1 g/dL [facility]на [facility] Albumin 4.4 3.6 - 5.1 g/dL [facility] GLOBULIN 2.9 1.9 - 3.7 g/dL (calc) [facility]на [facility] Alb/glob ratio 1.5 1.0 - 2.5 (calc) [facility] Bilirubin, total 0.8 0.2 - 1.2 mg/dL [facility] Alk phos 56 35 - 144 U/L [facility] AST 16 10 - 35 U/L [facility] ALT (SGPT) 18 9 - 46 U/L [facility] Blood 04/12/2025 7:52 AM COOK'S ASSISTANT 04/12/2025 7:52 AM COOK'S ASSISTANT Narrative [facility] - 04/13/2025 3:43 AM COOK'S ASSISTANT FASTING:YES FASTING: YES Result [facility] Edy Godinez MD LAB BLOOD ORDERABLES Final Result Performing Organization Address [facility] Co de Phone Number [email or web address] [address] [place] [address] * ECG 12 lead (03/30/2025 8:08 AM COOK'S ASSISTANT) Madhu Salazar III, MD ECG ORDERABLES Fin al Result * PSA screen (01/20/2024 7:34 AM CDT) PSA 1.28 < OR = 4.00 ng/mL [facility] Comment: The total PSA value from this assay system is standardized against the WHO standard. The test result will be approximately 20% lower when compared to the equimolar-standardized total PSA ([place]). Comparison of serial PSA results should be interpreted with this fact in mind. This test was performed using the Siemens chemiluminescent method. Values obtained from different assay methods cannot be used interchangeably. PSA levels, regardless of value, should not be interpreted as absolute evidence of the presence or absence of disease. Blood 01/20/2024 7:34 AM CDT 01/20/2024 7:34 AM CDT Narrative [facility] - 01/21/2024 2:08 AM CDT FASTING:YES FASTING: YES Edy Godinez MD LAB BLOOD ORDERABLES Final Result Performing Organization Address [facility]/State/ZIP Co de Phone Number [facility] [address] [address] * US Abdominal Aortic Aneurysm Screening (01/10/2023 12:00 PM CDT) Anatomical Region Laterality Modality Abdomen Ultrasound 01/10/2023 1:19 PM CDT Narrative 01/10/2023 1:21 PM CDT EXAM DESCRIPTION: US ABDOMINAL AORTIC ANEURYSM SCREENING REASON FOR STUDY: screen for aaa TECHNIQUE: Grayscale images acquired of the aorta and stored on PACS. Selected color Doppler and spectral images recorded. COMPARISON: None FINDINGS: AORTIC CALIBER MAXIMAL PROXIMAL: Obscured by overlying bowel gas. MID: 2.1 x 2.1 cm. DISTAL: Partially obscured. 2.0 cm. ILIAC DIAMETER RIGHT: 1.2 cm. LEFT: 1.1 cm. OTHER: No other significant finding. IMPRESSION: 1. The aorta is partially obscured by overlying bowel gas. No abdominal aortic aneurysm is seen within the visualized portions. REFERENCE: Please see below follow up recommendations for abdominal aortic aneurysm surveillance per Society for Vascular Surgery Guidelines: < 2.5 cm No follow up necessary 2.52.9 cm Recommended ultrasound follow up every 10 years 3.0-3.9 cm Recommended ultrasound follow up every 3 years 4.0-4.9 cm Recommended ultrasound follow up every 12 months, vascular surgery consult 5.0-5.4 cm Recommended ultrasound follow up every 6 months, vascular surgery consult >= 5.5 cm Referral to vascular surgeon Based upon Society for Vascular Surgery Guidelines: J Vasc Surgery 2008 50: s2s49; updated May 2017 J Vasc Surgery 67:277 THIS IS AN ELECTRONICALLY VERIFIED FINAL REPORT 01/10/2023 1:21 PM - Electronically signed by Chino Arreola M.D. AG: DEMETRIUS Report ID: [id number] Reading Location: [id number] Procedure Note Chino Arreola MD - 01/10/2023 EXAM DESCRIPTION: US ABDOMINAL AORTIC ANEURYSM SCREENING REASON FOR STUDY: screen for aaa TECHNIQUE: Grayscale images acquired of the aorta and stored on PACS.Selected color Doppler and spectral images recorded. COMPARISON: None FINDINGS: AORTIC CALIBER MAXIMAL PROXIMAL: Obscured by overlying bowel gas. MID: 2.1 x 2.1 cm. DISTAL: Partially obscured. 2.0 cm. ILIAC DIAMETER RIGHT: 1.2 cm. LEFT: 1.1 cm. OTHER: No other significant finding. IMPRESSION: 1. The aorta is partially obscured by overlying bowel gas. No abdominal aortic aneurysm is seen within the visualized portions. REFERENCE: Please see below follow up recommendations for abdominal aortic aneurysm surveillance per Society for Vascular Surgery Guidelines: < 2.5 cm No follow up necessary 2.52.9 cm Recommended ultrasound follow up every 10 years 3.0-3.9 cm Recommended ultrasound follow up every 3 years 4.0-4.9 cm Recommended ultrasound follow up every 12 months, vascularsurgery consult 5.0-5.4 cm Recommended ultrasound follow up every 6 months, vascularsurgery consult >= 5.5 cm Referral to vascular surgeon Based upon Society for Vascular Surgery Guidelines: J Vasc Surgery 2009Oct 50: s2s49; updated May 2017 J Vasc Surgery 67:277 THIS IS AN ELECTRONICALLY VERIFIED FINAL REPORT 01/10/2023 1:21 PM - Electronically signed by Chino Arreola M.D. AG: AG Report ID: [id number] Reading Location: [id number] us Edy Godinez MD [facility] US PROCEDURES Final Res ult * COLONOSCOPY (03/22/2022 8:08 AM CDT) Anatomical Region Laterality Modality Other Narrative Procedure Note Roxane La MD - 03/22/2022 8:08 AM CDT [facility] Patient Name: Meir Calles Procedure Date: 03/22/2022 8:08 AM Date of : 1955 Admit Type: Outpatient Age: 67 Gender: Male Note Status: Finalized Attending MD: Roxane La M.D. Procedure Date: 03/22/2022 Procedure: Colonoscopy Indications: High risk colon cancer surveillance: Personalhistory of colonic polyps, Last colonoscopy: October 2016 Providers: Roxane La M.D., Nancy Gill CRNA (Anesthesia Staff), Carmita Fung RN Referring MD: Edy Godinez M.D. Medicines: Monitored Anesthesia Care Complications: No immediate complications. Estimated Blood Loss: Estimated blood loss was minimal. Procedure: Pre-Anesthesia Assessment: - Prior to the procedure, a History and Physicalwas performed, and patient medications and allergieswere reviewed. The patient is competent. The risks and benefits of the procedure and the sedation optionsand risks were discussed with the patient. Allquestions were answered and informed consent was obtained. Patient identification and proposed procedure were verified by the physician, the nurse and the machine shorthand reporter in the procedure room. Mental Status Examination: alert and oriented. AirwayExamination: normal oropharyngeal airway and neck mobility. Respiratory Examination: clear to auscultation. CV Examination: normal. Prophylactic Antibiotics: The patient does not require prophylactic antibiotics. Prior Anticoagulants: The patient has taken no anticoagulant or antiplatelet agents. ASA Grade Assessment: III - A patient with severe systemic disease. After reviewing the risks and benefits,the patient was deemed in satisfactory condition to undergo the procedure. The anesthesia plan was touse monitored anesthesia care (MAC). Immediately priorto administration of medications, the patient was re-assessed for adequacy to receive sedatives. The heart rate, respiratory rate, oxygen saturations, blood pressure, adequacy of pulmonary ventilation,and response to care were monitored throughout the procedure. The physical status of the patient was re-assessed after the procedure. - The risks and benefits of the procedure and the sedation options and risks were discussed with the patient. All questions were answered and informed consent was obtained. After I obtained informed consent, the scope was passed under direct vision. Throughout theprocedure, the patient's blood pressure, pulse, and oxygen saturations were monitored continuously. The scopewas passed under direct vision. The Colonoscope was introduced through the anus and advanced to the the cecum, identified by appendiceal orifice andileocecal valve. The colonoscopy was performed without difficulty. The patient tolerated the procedurewell. The quality of the bowel preparation was adequate.The bowel preparation used was Clenpiq via split dose instruction. Findings: A 1 mm polyp was found in the cecum. The polyp was sessile. The polyp was removed with a jumbo cold forceps. Resection and retrieval were complete. Estimated blood loss was minimal. A few small-mouthed diverticula were found in the entire colon. External hemorrhoids were found during perianal exam. The hemorrhoids were moderate. The exam was otherwise without abnormality on direct and retroflexion views. Impression: - One 1 mm polyp in the cecum, removed with a jumbo cold forceps. Resected and retrieved. - Diverticulosis in the entire examined colon. - External hemorrhoids. - The examination was otherwise normal on directand retroflexion views. Recommendation: - Await pathology results. - High fiber diet. - Repeat colonoscopy in 7-10 years for surveillance based on pathology results. Procedure Code(s): --- Professional --- 09972, Colonoscopy, flexible; with biopsy, singleor multiple Diagnosis Code(s): --- Professional --- Z86.010, Personal history of colonic polyps D12.0, Benign neoplasm of cecum K64.4, Residual hemorrhoidal skin tags K57.30, Diverticulosis of large intestine without perforation or abscess without bleeding CPT copyright 2020 [employer]. All rights reserved. The codes documented in this report are preliminary and upon language interpreter reviewmay be revised to meet current compliance requirements. Electronically signed by Roxane La M.D. Roxane La M.D. 03/22/2022 9:19:11 AM Number of Addenda: 0 Note Initiated On: 03/22/2022 8:08 AM Roxane La MD ENDOSCOPY PROCEDURES Fi nal Result * HEPATITIS C SCREENING (08/13/2016) HEP C Normal Comment:NEGATIVE Historical Provider HEALTH MAINTENANCE Final Result from Last 3 Months or Most Recently Relevant to Health Maintenance Insurance [facility] MEDICARE [facility] [place]IC[place] [address] [facility] MEDICARE Advance Directives For more information, please contact: [phone] Documents on File Type Date Recorded 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 ADVANCE DIRECTIVE 08/16/2021 1:14 PM Power of Cordwainer-Medical Power of Cordwainer 08/13/2021 1:09 PM * Full Code (Latest Code Status on File) Date Activated Date Inactivated Comments 08/13/2021 5:45 AM 08/14/2021 10:08 PM * Full Code Date Activated Date Inactivated Comments 06/30/2020 8:31 AM 06/30/2020 2:39 PM * Full Code Date Activated Date Inactivated Comments 06/30/2020 8:31 AM 06/30/2020 8:31 AM Care Teams Scrap Sawyer Relationship Specialty Start Date End Date Edy Godinez MD [address] [place] [address] PCP - General Family Medicine 01/31/22 Zahida Griffin NP Nurse Practitioner Nurse Practitioner 07/11/17 Madhu Salazar III, MD [address] [address] Consulting Physician Cardiology 02/04/23
--- OUTSIDE RECORDS SUMMARY | 2025-04-18 03:22 | XMS_ITS | Encounter Summary ---
Author Organization [facility] Address [address] [place] [address] Phone Care Team Providers Care Animal Cruelty Investigator Name Role Phone Vinnie Bobby MD Primary Care Provi hceco Zahida Griffin PROTEIN SCIENTIST Unavailable Edy Godinez MD Primary Care Provider Marie CHOI MD, Madhu Ramos Unavailable [phone] Encounter Details Date Type Department Care Team (Late st Contact Info) Description 08/09/2017 Orders Only [facility] ProviderFrancisca MD [address] [place] [id number] Social History Tobacco Use Types Packs/Day Years Used Date Smoking Tobacco: Former Smokeless Tobacco: Former Alcohol Use Standard Drinks/Week Comments No 0 (1 standard drink = 0.6 oz pur e alcohol) Sex and Gender Information Value Date Recorded Sex Assigned at Not on file 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 us Historical Provider LAB BLOOD ORDERABLES Cristina l Result documented in this encounter Visit Diagnoses Not on filedocumented in this encounter Care Teams Animal Cruelty Investigator Relationship Specialty Start Date End Date Vinnie Bobby MD PCP - General 08/24/16 01/30/22 Edy Godinez MD [address] [place] [address] PCP - General Family Medicine 01/31/22 Zahida Griffin NP Nurse Practitioner Nurse Practitioner 07/11/17 Madhu Salazar III, MD [address] [address] Consulting Physician Cardiology 02/04/23 documented as of this encounter
[2025-04-18 03:25] VITALS: BP 176/96; PULSE 80; RESP 17; TEMP 36.7; O2SAT 99
--- NOTE | 2025-04-18 03:25 | ECG_ITS ---
Test Date: 2025-04-18 03:27:01 Measurements Intervals [place] Rate: 77 P: 50 NH: 183 QRS: -33 QRSD: 107 T: 1 QT: 359 QTc: 406 Interpretive Statements SINUS RHYTHM LEFT AXIS DEVIATION [QRS AXIS < -30] POSSIBLE LEFT VENTRICULAR HYPERTROPHY [VOLTAGE CRITERIA PLUS LAE OR QRS WIDENING] No previous ECG available for comparison Electronically Signed On 04-18-2025 06:20:03 EQUAL OPPORTUNITY COUNSELOR by Isa Farley M.D.
[2025-04-18 04:05] VITALS: PULSE 77
[2025-04-18 04:07] LABS: Hematocrit 45.0 % (42.0-52.0); Hemoglobin 15.5 g/dL (14.0-18.0); Immature Granulocyte Percent A 0.3 % (0-0.5); Lymphocytes Absolute Auto 3.05 K/mm3 (0.9-3.2); Mean Corpuscular HGB Conc 34.4 g/dl (32-36); Mean Corpuscular Hemoglobin 29.6 pg (26-34); Mean Corpuscular Volume 85.9 fl (80-100); Nucleated Red Blood Cells Absolute Auto 0.000 K/mm3 (0.0-0.012); Nucleated Red Blood Cells Perc 0.0 % (0.0-0.2); Platelet Count Result 233 k/mm3 (150-375); Red Blood Count 5.24 M/mm3 (4.6-6.20); White Blood Count 10.3 K/mm3 (4.5-10.0)
[2025-04-18 04:09] LABS: Alanine Aminotransferase 29 U/L (6-50); Albumin Level 4.5 g/dL (3.5-5.1); Alkaline Phosphatase 70 U/L (38-126); Anion Gap 10 mmol/L (4-12); Aspartate Amino Transferase 30 U/L (17-59); Bilirubin,Total 0.8 mg/dL (0.2-1.3); Blood Urea Nitrogen 18 mg/dL (9-20); Calcium 9.4 mg/dL (8.4-10.2); Carbon Dioxide 22 mmol/L (22-30); Chloride 106 mmol/L (98-107); Estimated CRCL calculation 70 ml/min; Estimated Glomerular Filt Rate > 60; Glucose 114 mg/dL (65-110); Lipase 151 U/L (23-300); Potassium 3.9 mmol/L (3.4-5.0); Sodium 138 mmol/L (137-145); Total Protein 8.0 g/dL (6.3-8.2)
[2025-04-18] MEDS: METOPROLOL TARTRATE 50 MG TAB PO (04:20)
[2025-04-18 04:21] LABS: INR 1.1; Partial Thromboplastin Time 29.7 Seconds (22.3-36.8); Prothrombin Time 13.8 Seconds (11.1-14.7); Troponin I < 0.012 ng/mL (0.000-0.034)
--- NOTE | 2025-04-18 04:27 | ED_ITS ---
HPI - Arrhythmia/Palpitations General Chief Complaint: Arrhythmia/Palpitations Stated Complaint: irregular heart rhythm Time Seen by Provider: 04/18/25 03:54 History of Present Illness HPI narrative: 70-year-old male with a 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 He has had these ongoing intermittently since 2021 where he went to [facility] and had extensive cardiac workup including cardiac MRI, echocardiogram, stress test and patient was placed on by daily metoprolol and has been mostly symptom free for several years. He has been doing with some elevated blood pressure readings and his primary care provider changed his metoprolol dose from metoprolol tartrate 50 mg b.i.d. to metoprolol succinate 90 mg daily instead. This change occurred about 3 weeks ago and now he is having symptoms with having intermittent palpitations that are not sustained that he thinks could be similar to his previous ventricular dysrhythmias or PVCs. Denies any chest pain or difficulty breathing with these symptoms but does notice his heart flutter when they happen. Last episode was just prior to arrival he has been symptom-free since arrival to the ED. Denies any symptoms at this time. Besides his medication change his metoprolol no other medication changes recent health concerns. No traumatic injuries. No recent illnesses. Does not take any other anti dysrhythmic medications and does not take any blood thinners even aspirin. Related Data Home Medications ?Medication ?Instructions ?Recorded ?Confirmed ?Last Taken ?Type atorvastatin 10 mg tablet 5 mg PO DAILY 08/12/21 Unkn own History metoprolol tartrate 25 mg tablet 25 mg PO DAILY Unknown History telmisartan 80 mg tablet 80 mg PO DAILY 08/12/21 Unk nown History Allergies Allergy/AdvReac Type Severity Reaction Status Date / Time No Known Allergies Allergy Mild Verified 04/18/25 03:30 Review of Systems 2 Review of Systems: As reviewed above in HPI [facility] Past Medical History Medical History Chou esophagus PVC (premature ventricular contraction) Hypertension Surgical History Surgical History No pertinent past surgical history Social History Social History Smoking status: Former smoker Exam 2 Narrative: GENERAL: [Well-appearing, well-nourished, and in no acute distress.] HEAD: [Normocephalic, atraumatic.] EYES: [PERRLA and EOMI.] ENT: Nares clear, no rhinorrhea or epistaxis. Mucous membranes moist. NECK: Supple. CHEST: [Clear to auscultation. No respiratory distress.] HEART: [Regular rate and rhythm]. No murmur heard. [Normal peripheral pulses.] ABDOMEN: [Soft, nondistended], [nontender], [No rigidity or guarding] EXTREMITIES: Normal range of motion. [No edema.] SKIN: Warm, dry, no rash. NEURO: [No focal deficits]. Alert and oriented [x3.] PSYCH: [Normal mood and affect.] Course Vital Signs Vital signs: Vital Signs Temperature 36.7 C 04/18/25 03:25 Pulse Rate 80 04/18/25 03:25 Respiratory Rate 17 04/18/25 03:25 Blood Pressure 176/96 H 04/18/25 03:25 Pulse Oximetry 99 04/18/25 03:25 Oxygen Delivery Room Air 04/18/25 03:25 Temperature 36.7 C 04/18/25 03:25 Pulse Rate 68 04/18/25 06:48 Respiratory Rate 18 04/18/25 06:48 Blood Pressure 162/99 H 04/18/25 06:48 Pulse Oximetry 95 04/18/25 06:48 Oxygen Delivery Room Air 04/18/25 03:25 MDM - Arrhythmia/Palpitations MDM Narrative Medical decision making narrative: 70-year-old male with a 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 He has had these ongoing intermittently since 2021 where he went to [facility] and had extensive cardiac workup including cardiac MRI, echocardiogram, stress test and patient was placed on by daily metoprolol and has been mostly symptom free for several years. He has been doing with some elevated blood pressure readings and his primary care provider changed his metoprolol dose from metoprolol tartrate 50 mg b.i.d. to metoprolol succinate 90 mg daily instead. This change occurred about 3 weeks ago and now he is having symptoms with having intermittent palpitations that are not sustained that he thinks could be similar to his previous ventricular dysrhythmias or PVCs. Denies any chest pain or difficulty breathing with these symptoms but does notice his heart flutter when they happen. Last episode was just prior to arrival he has been symptom-free since arrival to the ED. Denies any symptoms at this time. Besides his medication change his metoprolol no other medication changes recent health concerns. No traumatic injuries. No recent illnesses. Does not take any other anti dysrhythmic medications and does not take any blood thinners even aspirin. Patient's EKG appears reassuring without any dysrhythmia or PVCs. He was placed on monitoring specialist. He is not unremarkable physical examination was strong symmetric pulses in clear breath sounds. No complaints at this time. Given a dose of his previously working metoprolol tartrate 50 mg and cardiac workup at this time including serial troponin and electrolyte panel ordered. X-ray EKG obtained. Patient will be observed for any recurrence of his ventricular PVCs or other dysrhythmias and already has a appointment tomorrow with his primary care provider to discuss further. He had a recent follow-up visit with his speech clinician who manages last month as well. His doctors is in [facility]. Patient's initial troponin is unremarkable and his 1st EKG is normal. No PVCs. Patient felt much better after giving him his 50 mg metoprolol tartrate dose. Laboratory studies are reassuring without any signs of kidney disease or electrolyte imbalances. Delta troponin is also negative and repeat EKG unremarkable. Patient has been observed on telemetry here in the ED for several hours without any ectopy or PVCs. After repeat evaluation and symptom control I had discussion with the patient and we will change his metoprolol dosing to b.i.d. metoprolol tartrate as he was stable on this dose for years without any recurrence of his symptoms and he will follow up with his doctor tomorrow. Patient comfortable the plan and safe for discharge with strict return precautions. Medical Records Attestation: I reviewed the patient's medical records. Lab Data Attestation: I reviewed the patient's lab results. 04/18/25 03:51 04/18/25 03:51 Labs: Lab Results 04/18/25 04/18/25 Range/Units 03:51 06:22 WBC 10.3 H (4.5-10.0) K/mm3 RBC 5.24 (4.6-6.20) M/mm3 Hgb 15.5 (14.0-18.0) g/dL Hct 45.0 (42.0-52.0) % MCV 85.9 (80-100) fl MCH 29.6 (26-34) pg MCHC 34.4 (32-36) g/dl RDW 12.8 (11.5-14.5) % Plt Count 233 (150-375) k/mm3 MPV 10.6 H (7.4-10.4) fl Immature Gran % (Auto) 0.3 (0-0.5) % Neut % (Auto) 59.4 (45.5-73.1) % Lymph % (Auto) 29.5 (18.3-44.2) % [place] % (Auto) 7.8 (2.6-8.5) % Eos % (Auto) 2.5 (0-4.4) % Baso % (Auto) 0.5 (0.2-1.2) % Lymph # (Auto) 3.05 (0.9-3.2) K/mm3 [place] # (Auto) 0.8 H (0.1-0.6) K/mm3 Eos # (Auto) 0.3 (0-0.3) K/mm3 Baso # (Auto) 0.1 (0.0-0.1) K/mm3 Abs Immat Gran (auto) 0.03 (0.00-0.031) K/mm3 Absolute Neuts (auto) 6.1 (1.3-6.7) K/mm3 Absolute Nucleated RBC 0.000 (0.0-0.012) K/mm3 Nucleated RBC % 0.0 (0.0-0.2) % PT 13.8 (11.1-14.7) Seconds INR 1.1 APTT 29.7 (22.3-36.8) Seconds Sodium 138 (137-145) mmol/L Potassium 3.9 (3.4-5.0) mmol/L Chloride 106 (98-107) mmol/L Carbon Dioxide 22 (22-30) mmol/L Anion Gap 10 (4-12) mmol/L BUN 18 (9-20) mg/dL Creatinine 1.06 (0.7-1.3) mg/dL Estim Creat Clear Calc 70 ml/min Estimated GFR > 60 (59 - ) Glucose 114 H (65-110) mg/dL Calcium 9.4 (8.4-10.2) mg/dL Magnesium 2.3 (1.6-2.3) mg/dL Total Bilirubin 0.8 (0.2-1.3) mg/dL AST 30 (17-59) U/L ALT 29 (6-50) U/L Alkaline Phosphatase 70 (38-126) U/L Troponin I < 0.012 < 0.012 (0.000-0.034) ng/mL Total Protein 8.0 (6.3-8.2) g/dL Albumin 4.5 (3.5-5.1) g/dL Lipase 151 (23-300) U/L TSH 4.350 (0.465-4.680) uIU/mL Imaging Data Attestation: I personally reviewed and interpreted this imaging study as follows: My impression: Impressions Chest X-Ray 04/18/25 06:53 IMPRESSION: 1. No acute cardiopulmonary findings given portable technique. Consider PA and lateral films with deep inspiration. Discharge Plan Discharge Clinical Impression: Palpitations, Hypertension, PVC (premature ventricular contraction) Patient Disposition: Home Condition: Stable Instructions: Antibiotic Form Additional Instructions: We will change your medications to go back to what was working in the past including 50 mg metoprolol tartrate b.i.d.. Do not take the metoprolol succinate anymore and talk to your doctor tomorrow about continuing this regimen and further titration care of your blood pressure medicines. Return with any emergent concerns or recurrent symptoms, losing consciousness, chest pain, shortness a breath or any other emergencies. Patient Language: Moroccan Prescriptions: New metoprolol tartrate 50 mg tablet 50 mg PO Q12H Qty: 60 0RF No Action atorvastatin 10 mg tablet 5 mg PO DAILY metoprolol tartrate 25 mg tablet 25 mg PO DAILY telmisartan 80 mg tablet 80 mg PO DAILY Follow-up/Referrals: Diamante,Vinnie Monreal MD [Non-Staff, Unknown] Time of Disposition: 07:05
[2025-04-18 04:34] LABS: Magnesium 2.3 mg/dL (1.6-2.3)
--- OUTSIDE RECORDS SUMMARY | 2025-04-18 05:08 | XMS_ITS | Encounter Summary ---
Author Organization [facility] Address [address] [place] [address] Phone Care Team Providers Care Tubing Machine Tender Name Role Phone Vinnie Bobby MD Primary Care Provi checo Zahida Griffin LABOR CUSTODIAN Unavailable Edy Godinez MD Primary Care Provider Marie CHOI MD, Madhu Ramos Unavailable [phone] Encounter Details Date Type Department Care Team (Late st Contact Info) Description 08/09/2017 Orders Only [facility] ProviderFrancisca MD [address] [place] [address] Social History Tobacco Use Types Packs/Day Years Used Date Smoking Tobacco: Former Smokeless Tobacco: Former Alcohol Use Standard Drinks/Week Comments No 0 (1 standard drink = 0.6 oz pur e alcohol) Sex and Gender Information Value Date Recorded Sex Assigned at Not on file 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
--- OUTSIDE RECORDS SUMMARY | 2025-04-18 05:08 | XMS_ITS | Clinical Summary ---
Author Organization [facility] Address [address] [place] [address] Care Team Providers Care Supervisor Painting [employer] Name Role Phone Zahida Griffin NP Unavailable [phone] Edy Godinez MD Primary Care Provider [phone] Marie CHOI MD, Curtis Merle Unavailable [phone] Allergies No known active allergies Medications atorvastatin [...] 04/15/2024 Assessment & Plan (04/15/2024 10:40 PM CHIEF ANALYTICS OFFICER): - Muna scan (09/08/21): mildly reduced LVEF [...] provided. Assessment & Plan (04/15/2024 10:46 PM CHIEF ANALYTICS OFFICER): - heart healthy, low-fat, high-fiber diet - [...] 09/25/2021 Assessment & Plan (03/30/2025 7:56 AM CHIEF ANALYTICS OFFICER): Chronic, stable. Mild LV dysfunction by last [...] (09/20/2021 8:58 AM CDT): Found incidental on cloin and apearance of benign suggest sono to [facility] and confirm stable bversus gi eval . Has gi for esophagus and Consider using them Colon cancer screening 09/20/2021 Assessment & Plan (09/20/2021 9:06 AM CDT): Referral to gi for 5 yr colon repeat Ventricular tachycardia, non-sustained Assessment & Plan (03/30/2025 7:55 AM CHIEF ANALYTICS OFFICER): Chronic, stable. Low clinical burden. Well suppressed on metoprolol, which is well tolerated. --Continue metoprolol XL 50 mg daily Assessment & Plan (04/01/2024 8:35 AM CHIEF ANALYTICS OFFICER): Chronic, stable condition. Well suppressed on metoprolol. 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 06/22/2020 Overview (06/22/2020): Added automatically from request for surgery [id number] Assessment & Plan (09/20/2021 8:57 AM CDT): [...] yr Assessment & Plan (06/22/2020 9:02 AM CHIEF ANALYTICS OFFICER): psa dropped to loewr 1.2 and v [...] return Assessment & Plan (04/25/2017 11:00 AM CHIEF ANALYTICS OFFICER): Check psa yr'ly IGT (impaired glucose tolerance) 01/25/2017 Assessment & Plan (09/20/2021 8:54 AM CDT): a1c down to 5.4 dn in past 5.7 so watch diet Assessment & Plan (05/25/2021 8:30 AM CHIEF ANALYTICS OFFICER): Check on return a1c Assessment & Plan (12/20/2020 8:21 AM CDT): Check a1 On reutrn Assessment & Plan (06/22/2020 8:53 AM CHIEF ANALYTICS OFFICER): a1c dropoped over a yr on yr [...] diet Assessment & Plan (04/25/2017 10:54 AM CHIEF ANALYTICS OFFICER): Check obn return Assessment & Plan (01/25/2017 8:20 AM CDT): a1c at 5.5 and 5.6 andless nl Hyperlipidemia 05/02/2015 Overview (08/31/2016): HYPERLIPIDEMIA NEC/NOS Assessment & Plan (04/15/2024 10:46 PM CHIEF ANALYTICS OFFICER): - chronic, LDL 72- close to goal [...] limited. Assessment & Plan (05/25/2021 8:30 AM CHIEF ANALYTICS OFFICER): ldl 69 and want here r betterYour [...] limited. Assessment & Plan (06/22/2020 8:55 AM CHIEF ANALYTICS OFFICER): ldl at 99 and hdl 32. Given [...] limited. Assessment & Plan (04/25/2017 10:55 AM CHIEF ANALYTICS OFFICER): ldl dropped To 57 with only 10 [...] esophagus Assessment & Plan (04/15/2024 10:44 PM CHIEF ANALYTICS OFFICER): - based on EGD esophageal bx (03/22/22) - no acute concerns, denies dysphagia - not currently on PPI, recommend routine follow-up with GI Assessment & Plan (06/22/2020 8:57 AM CHIEF ANALYTICS OFFICER): Should see gi to be re eval'd ? Per there directios. As last one age 62. Last 11/10 and rec's of 3 yr repeat. Will refer Assessment & Plan (12/17/2018 9:23 AM CDT): Needs egd next October. Discussed meds and declines Palpitations 10/10/2013 Overview (08/29/2016): Palpitation Assessment & Plan (06/22/2020 8:53 AM CHIEF ANALYTICS OFFICER): Gone with meds and lower caffeine Panic 10/10/2013 Overview (08/29/2016): Panic Intention tremor 10/10/2013 Overview (08/29/2016): Intention tremor Benign hypertension 10/10/2013 Overview (08/31/2016): BENIGN HYPERTENSION Assessment & Plan (04/15/2024 10:24 PM CHIEF ANALYTICS OFFICER): - chronic, at goal of < 140/90 [...] meds Assessment & Plan (05/25/2021 8:31 AM CHIEF ANALYTICS OFFICER): bp better and keep meds hereHypertension, Medical [...] bp. Assessment & Plan (06/22/2020 8:55 AM CHIEF ANALYTICS OFFICER): bp contorlleda nd stay on meds as [...] bp. Assessment & Plan (06/19/2019 8:02 AM CHIEF ANALYTICS OFFICER): Recommend DASH diet, heart-healthy lifestyle, exercise. Discussed [...] hypertension. Assessment & Plan (04/25/2017 10:55 AM CHIEF ANALYTICS OFFICER): bp good and no chagesHypertension, Medical treament [...] well Assessment & Plan (06/22/2020 8:52 AM CHIEF ANALYTICS OFFICER): No complaints and not seeing gi for Systolic dysfunction 10/10/2013 Overview (08/31/2016): Systolic dysfunction Assessment & Plan (09/20/2021 8:53 AM CDT): Mild eje low or borderline . Seeing card as arb an issue Assessment & Plan (12/20/2020 8:20 AM CDT): eje fr 45 and wt off and bp tightening in order and recheck in a yr Assessment & Plan (06/22/2020 8:51 AM CHIEF ANALYTICS OFFICER): Last 55 % eje fr and will [...] tolerate Assessment & Plan (06/22/2020 8:53 AM CHIEF ANALYTICS OFFICER): Does not treat Assessment & Plan (12/21/2019 [...] 01/24/2018 Assessment & Plan (04/25/2017 10:59 AM CHIEF ANALYTICS OFFICER): Start Zyrtec 10 mg daily. Add singulair [...] lose Assessment & Plan (05/25/2021 8:31 AM CHIEF ANALYTICS OFFICER): Wt stable and Keep hre or better Assessment & Plan (12/20/2020 8:22 AM CDT): Work to drop wt Assessment & Plan (06/22/2020 8:59 AM CHIEF ANALYTICS OFFICER): Work to dorp Insomnia 04/23/2011 01/25/2017 Overview (08/29/2016): Insomnia Encounters Date Type Department Care Team Description 04/13/2025 Results Follow-Up [facility] Medical [facility] Primary Care at [address] [phone] Edy Godinez MD CBC with auto differential, Comprehensive metabolic panel, Lipid panel, Additional followed-up results: 6 03/30/2025 8:00 AM CHIEF ANALYTICS OFFICER [facility] [address] [address] Madhu Salazar III, MD Ventricular tachycardia, non-sustained (HCC) (Primary Dx); Nonischemic cardiomyopathy (HCC); Cardiac arrhythmia, unspecified cardiac arrhythmia type 03/22/2025 10:45 AM CDT Office Visit [facility] Primary Care at [address] [phone] Edy Godinez MD Benign hypertension (Primary Dx) 03/19/2025 Telephone [facility] Primary Care at [address] [phone] Edy Godinez MD Symptom Based Call from [...] Hypertension Hypertension History of colonoscopy 11/13/2016 at [facility] Chou esophagus GERD (gastroesophageal reflux disease) [...] on file Legal Sex Male 8:04 PM CHIEF ANALYTICS OFFICER Gender Identity Not on file Sexual Orientation Straight 12/20/2019 9: 12 PM CDT 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 Not on file Not on file Not on fi le Last Filed Vital Signs Vital Sign Reading Time Taken Comments Blood Pressure 152/78 03/30/2025 8:08 AM CHIEF ANALYTICS OFFICER Pulse 63 03/30/2025 8:08 AM CHIEF ANALYTICS OFFICER Temperature 36.1 C (96.9 F) 03/22/2025 10:58 AM CDT Respiratory Rate 18 03/22/2025 10:58 AM CDT Oxygen Saturation 98% 03/30/2025 8:08 AM CHIEF ANALYTICS OFFICER Inhaled Oxygen Concentration - - Weight 94.3 kg (208 lb) 03/30/2025 8:08 AM CHIEF ANALYTICS OFFICER Height 177.8 cm (5' 10) 03/30/2025 8:08 AM CHIEF ANALYTICS OFFICER Body Mass Index 29.84 03/30/2025 8:08 AM CHIEF ANALYTICS OFFICER Plan of Treatment Health Maintenance Due Date [...] Comments HEMOGLOBIN A1C Routine 04/12/2025 7:52 AM CHIEF ANALYTICS OFFICER IGT (impaired glucose tolerance) VITAMIN D 25 HYDROXY Routine 04/12/2025 7:52 AM CHIEF ANALYTICS OFFICER Class 1 obesity due to excess calories with serious comorbidity and body mass index (BMI) of 30.0 to 30.9 in adult THYROID FUNCTION CASCADE Routine 04/12/2025 7:52 AM CHIEF ANALYTICS OFFICER Benign hypertension LIPID PANEL Routine 04/12/2025 7:52 AM CHIEF ANALYTICS OFFICER Mixed hyperlipidemia COMPREHENSIVE METABOLIC PANEL Routine 04/12/2025 7:52 AM CHIEF ANALYTICS OFFICER Benign hypertension CBC WITH AUTO DIFFERENTIAL Routine 04/12/2025 7:52 AM CHIEF ANALYTICS OFFICER Benign hypertension HEPATITIS B CORE ANTIBODY, TOTAL Routine 04/12/2025 7:52 AM CHIEF ANALYTICS OFFICER Need for hepatitis B screening test HEPATITIS B SURFACE ANTIGEN Routine 04/12/2025 7:52 AM CHIEF ANALYTICS OFFICER Need for hepatitis B screening test HEPATITIS B SURFACE ANTIBODY (IMMUNE STATUS) Routine 04/12/2025 7:52 AM CHIEF ANALYTICS OFFICER Need for hepatitis B screening test ECG 12-LEAD Routine 03/30/2025 8:08 AM CHIEF ANALYTICS OFFICER Cardiac arrhythmia, unspecified cardiac arrhythmia type PSA SCREEN Routine 01/20/2024 7:34 AM CDT Prostate cancer screening ABDOMINAL AORTIC ANEURYSM SCREENING Schedule Routine, Read Routine (OP Routine) 01/10/2023 12:00 PM CDT Screening for abdominal aortic aneurysm COLONOSCOPY 03/22/2022 8:08 AM CDT HEPATITIS C SCREENING Routine 08/13/2016 from Last 3 Months or Most Recently Relevant to Health Maintenance Results * Thyroid Function [place] (04/12/2025 7:52 AM CHIEF ANALYTICS OFFICER) TSH 2.13 0.40 - 4.50 mIU/L [facility] Blood 04/12/2025 7:52 AM CHIEF ANALYTICS OFFICER 04/12/2025 7:52 AM CHIEF ANALYTICS OFFICER Narrative [facility] - 04/13/2025 3:43 AM CHIEF ANALYTICS OFFICER FASTING:YES FASTING: YES us Edy Godinez MD LAB BLOOD ORDERABLES Final Result [facility] [address] [place] [address] * CBC with auto differential (04/12/2025 7:52 AM CHIEF ANALYTICS OFFICER) WBC 9.1 3.8 - 10.8 Thousand/u L [facility] RBC, POC 5.34 4.20 - 5.80 Million/uL [facility] Hgb 15.8 13.2 - 17.1 g/dL [facility] Hct 48.9 38.5 - 50.0 % [facility] MCV 91.6 80.0 - 100.0 fL [facility] MCH 29.6 27.0 - 33.0 pg [facility] MCHC 32.3 32.0 - 36.0 g/dL [facility] Comment: For adults, a slight decrease in the calculated MCHC value (in the range of 30 to 32 g/dL) is most likely not clinically significant; however, it should be interpreted with caution in correlation with other red cell parameters and the patient's clinical condition. Rdw 12.7 11.0 - 15.0 % [facility] Platelets 246 140 - 400 Thousand/u L [facility] MPV 10.9 7.5 - 12.5 fL [facility] Neutrophils, abs 5,551 1,500 - 7,800 cells/uL [facility] Lymphocytes, abs 2,439 850 - 3,900 cells/uL [facility] Monocyte abs 764 200 - 950 cells/uL [facility] Eosinophils, abs 291 15 - 500 cells/uL [facility] Basophils, abs 55 0 - 200 cells/uL [facility] Neutrophils 61 % [facility] Lymphocyte pct 26.8 % [facility] Monocytes 8.4 % [facility] Eosinophils 3.2 % [facility] Basophils 0.6 % [facility] Blood 04/12/2025 7:52 AM CHIEF ANALYTICS OFFICER 04/12/2025 7:52 AM CHIEF ANALYTICS OFFICER Narrative [facility] - 04/13/2025 3:43 AM CHIEF ANALYTICS OFFICER FASTING:YES FASTING: YES Edy Godinez MD LAB BLOOD ORDERABLES Final Result [facility] [address] [place] [address] * Hepatitis B core antibody, total Blood (04/12/2025 7:52 AM CHIEF ANALYTICS OFFICER) Pathologist [facility] Hep B core IgG/IgM NON-REACTI VE NON-REACTI VE [facility] Comment: For additional information, please refer to http://Image Searcher.Tivity/faq/URF455 (This link is being provided for informational/ educational purposes only.) Blood 04/12/2025 7:52 AM CHIEF ANALYTICS OFFICER 04/12/2025 7:52 AM CHIEF ANALYTICS OFFICER Narrative [facility] - 04/13/2025 3:43 AM CHIEF ANALYTICS OFFICER FASTING:YES FASTING: YES Edy Godinez MD LAB MICROBIOLOGY - GENERAL ORDERABLES Final Result [facility] [address] [place] [address] * Vitamin D 25 hydroxy (04/12/2025 7:52 AM CHIEF ANALYTICS OFFICER) Pathologist [facility] Vitamin D 25-OH 40 30 - 100 [...] D, (D2,D3), LC/MS/MS is recommended: order code 92208 (patients >2yrs). See Note 1 Note 1 For additional information, please refer to http://Image Searcher.Sports Weather Media/faq/DNW403 (This link is being provided for informational/ educational purposes only.) Blood 04/12/2025 7:52 AM CHIEF ANALYTICS OFFICER 04/12/2025 7:52 AM CHIEF ANALYTICS OFFICER Narrative [facility] - 04/13/2025 3:43 AM CHIEF ANALYTICS OFFICER FASTING:YES FASTING: YES Result [facility] us Edy Godinez MD LAB BLOOD ORDERABLES Final Result Performing Organization Address [facility] Co de Phone Number [facility] [address] [place] [address] * Hepatitis B surface antibody (immune status) Blood (04/12/2025 7:52 AM CHIEF ANALYTICS OFFICER) HBsAb (immune status) NON-REACTI VE NON-REACTI VE [facility] Blood 04/12/2025 7:52 AM CHIEF ANALYTICS OFFICER 04/12/2025 7:52 AM CHIEF ANALYTICS OFFICER Narrative [facility] - 04/13/2025 3:43 AM CHIEF ANALYTICS OFFICER FASTING:YES FASTING: YES Result [facility] Edy Godinez MD LAB MICROBIOLOGY - GENERAL ORDERABLES Final Result Performing Organization Address [facility] Co de Phone Number [facility] [address] [place] [address] * Hepatitis B Surface Antigen Blood (04/12/2025 7:52 AM CHIEF ANALYTICS OFFICER) HepBsAg NON-REACTI VE NON-REACTI VE [facility] Comment: For additional information, please refer to http://education.Tivity/faq/TVO429 (This link is being provided for informational/ educational purposes only.) Blood 04/12/2025 7:52 AM CHIEF ANALYTICS OFFICER 04/12/2025 7:52 AM CHIEF ANALYTICS OFFICER Narrative [facility] - 04/13/2025 3:43 AM CHIEF ANALYTICS OFFICER FASTING:YES FASTING: YES Result [facility] us Edy Godinez MD LAB MICROBIOLOGY - GENERAL ORDERABLES Final Result Performing Organization Address [facility] Co de Phone Number [facility] [address] [place] [address] * (ABNORMAL) Hemoglobin A1c (04/12/2025 7:52 AM CHIEF ANALYTICS OFFICER) Pathologist [facility] Hgb A1C 5.7(H) <5.7 % of total Hgb [facility] Comment: For someone without known diabetes, [...] diabetes for children. Blood 04/12/2025 7:52 AM CHIEF ANALYTICS OFFICER 04/12/2025 7:52 AM CHIEF ANALYTICS OFFICER Narrative [facility] - 04/13/2025 3:43 AM CHIEF ANALYTICS OFFICER FASTING:YES FASTING: YES Edy Godinez MD LAB BLOOD ORDERABLES Final Result [facility] [address] [place] [address] * (ABNORMAL) Lipid panel (04/12/2025 7:52 AM CHIEF ANALYTICS OFFICER) [facility] Cholesterol 122 <200 mg/dL [facility] HDL 33(L) > OR = 40 mg/dL [facility] Triglycerides 167(H) <150 mg/dL [facility] LDL 64 mg/dL (calc) [facility] Comment: Reference range: <100 Desirable range <100 mg/dL for primary prevention; <70 mg/dL for patients with CHD or diabetic patients with > or = 2 CHD risk factors. LDL-C is now calculated using the Oscar-Daria calculation, which is a validated novel method providing better accuracy than the Friedewald equation in the estimation of LDL-C. Oscar MELENDEZ et al. DEBORAH. 2013;310(19): 1369-5576 (http://education.Sports Weather Media/faq/RHA596) Chol/HDL ratio 3.7 <5.0 (calc) [facility] Non-HDL, (LDL+VLDL) 89 <130 mg/dL (calc) [facility] Comment: For patients with diabetes plus 1 major ASCVD risk factor, treating to a non-HDL-C goal of <100 mg/dL (LDL-C of <70 mg/dL) is considered a therapeutic option. Blood 04/12/2025 7:52 AM CHIEF ANALYTICS OFFICER 04/12/2025 7:52 AM CHIEF ANALYTICS OFFICER Narrative [facility] - 04/13/2025 3:43 AM CHIEF ANALYTICS OFFICER FASTING:YES FASTING: YES us Edy Godinez MD LAB BLOOD ORDERABLES Final Result [facility] [address] [place] [address] * (ABNORMAL) Comprehensive metabolic panel (04/12/2025 7:52 AM CHIEF ANALYTICS OFFICER) Glucose 112(H) 65 - 99 mg/dL [facility] Comment: Fasting reference interval For someone without known diabetes, a glucose value between 100 and 125 mg/dL is consistent with prediabetes and should be confirmed with a follow-up test. BUN 16 7 - 25 mg/dL [facility] Creatinine 1.15 0.70 - 1.35 mg/dL [facility] eGFR 69 > OR = 60 mL/min/1.7 3m2 [facility] BUN/creat ratio SEE NOTE: 6 - 22 (calc) [facility] Comment: Not Reported: BUN and Creatinine are within reference range. Sodium 139 135 - 146 mmol/L [facility] Potassium, pl 4.6 3.5 - 5.3 mmol/L [facility] Chloride 103 98 - 110 mmol/L [facility] CO2 30 20 - 32 mmol/L [facility] Calcium 9.7 8.6 - 10.3 mg/dL [facility] Protein, sr 7.3 6.1 - 8.1 g/dL [facility] Albumin 4.4 3.6 - 5.1 g/dL [facility] GLOBULIN 2.9 1.9 - 3.7 g/dL (calc) [facility] Alb/glob ratio 1.5 1.0 - 2.5 (calc) [facility] Bilirubin, total 0.8 0.2 - 1.2 mg/dL [facility] Alk phos 56 35 - 144 U/L [facility] AST 16 10 - 35 U/L [facility] ALT (SGPT) 18 9 - 46 U/L [facility] Blood 04/12/2025 7:52 AM CHIEF ANALYTICS OFFICER 04/12/2025 7:52 AM CHIEF ANALYTICS OFFICER Narrative [facility] - 04/13/2025 3:43 AM CHIEF ANALYTICS OFFICER FASTING:YES FASTING: YES Result [facility] Edy Godinez MD LAB BLOOD ORDERABLES Final Result Performing Organization Address [facility] Co de Phone Number [facility] [address] [place] [address] * ECG 12 lead (03/30/2025 8:08 AM CHIEF ANALYTICS OFFICER) Madhu Salazar III, MD ECG ORDERABLES Fin al Result * PSA screen (01/20/2024 7:34 AM CDT) PSA 1.28 < OR = 4.00 ng/mL [facility] Comment: The total PSA value from this assay system is standardized against the WHO standard. The test result will be approximately 20% lower when compared to the equimolar-standardized total PSA ([place]). Comparison of serial PSA results should be [...] BLOOD ORDERABLES Final Result Performing Organization Address [facility]/State/ZIP Co de Phone Number [facility] [address] [address] * US Abdominal Aortic Aneurysm Screening (01/10/2023 [...] Chino Arreola M.D. AG: DEMETRIUS Report ID: [id number] Reading Location: [id number] Procedure Note Chino Arreola MD - 01/10/2023 [...] Chino Arreola M.D. AG: AG Report ID: [id number] Reading Location: [id number] us Edy Godinez [place] [facility] [place] Final Res ult * COLONOSCOPY (03/22/2022 8:08 AM CDT) Anatomical Region Laterality Modality Other Narrative Procedure Note Roxane La MD - 03/22/2022 8:08 AM CDT [facility] Patient Name: Meir Calles Procedure [...] by the physician, the nurse and the loan clerk in the procedure room. Mental Status Examination: [...] pathology results. Procedure Code(s): --- Professional --- 51000, Colonoscopy, flexible; with biopsy, singleor multiple Diagnosis Code(s): --- Professional --- Z86.010, Personal history of colonic polyps D12.0, Benign neoplasm of cecum K64.4, Residual hemorrhoidal skin tags K57.30, Diverticulosis of large intestine without perforation or abscess without bleeding CPT copyright 2020 [employer]. All rights reserved. 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 ADVANCE DIRECTIVE 08/16/2021 1:14 PM Power of A P Manager-Medical Power of A P Manager 08/13/2021 1:09 PM * Full Code (Latest Code Status on File) Date Activated Date Inactivated Comments 08/13/2021 5:45 AM 08/14/2021 10:08 PM * Full Code Date Activated Date Inactivated Comments 06/30/2020 8:31 AM 06/30/2020 2:39 PM * Full Code Date Activated Date Inactivated Comments 06/30/2020 8:31 AM 06/30/2020 8:31 AM Care 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
[2025-04-18 05:26] LABS: Thyroid Stimulating Hormone 4.350 uIU/mL (0.465-4.680)
--- NOTE | 2025-04-18 06:12 | ECG_ITS ---
Test Date: 2025-04-18 06:16:55 Measurements Intervals [place] Rate: 56 P: 33 ID: [id number] QRS: -34 QRSD: 105 T: -17 QT: 394 QTc: 381 Interpretive Statements SINUS BRADYCARDIA LEFT AXIS DEVIATION [QRS AXIS < -30] VOLTAGE CRITERIA FOR LVH [MEETS CRITERIA IN ONE OF: R(aVL), S(V1), R(V5), R(V5/V6)+S(V1)] WARNING: DATA QUALITY MAY AFFECT INTERPRETATION Compared to ECG 04/18/2025 03:27:01 Sinus rhythm no longer present Electronically Signed On 04-18-2025 06:21:37 FASHION CONSULTANT by Isa Farley M.D.
[2025-04-18 06:48] VITALS: BP 162/99; PULSE 68; RESP 18; O2SAT 95
[2025-04-18 06:52] LABS: Troponin I < 0.012 ng/mL (0.000-0.034)
[2025-04-18 07:20] VITALS: BP 155/97; PULSE 60; RESP 18; O2SAT 99
== END 2025-04-18 07:22 | disposition home or self-care (01) ==
PROVIDERS: Emergency Provider Student in an Organized Health Care Education/Training Program; PCP Family Medicine
DX: R00.2 Palpitations (principal); I49.3 Ventricular premature depolarization; I10 Essential (primary) hypertension; Z87.891 Personal history of nicotine dependence; R00.1 Bradycardia, unspecified; R94.31 Abnormal electrocardiogram [ECG] [EKG]; Z79.899 Other long term (current) drug therapy
CPT/HCPCS: 36415; 71045; 80053; 83690; 83735; 84443; 84484; 85025; 85610; 85730; 93005; 99284; A9270